=== PATIENT | female | born 1935 | race Caucasian/White ===

== ENCOUNTER 2025-04-28 13:48 | Emergency (ER) | payer OTHER ==
--- OUTSIDE RECORDS SUMMARY | 2025-04-28 13:54 | XMS REPORT | Continuity of Care Document ---
Author Name Unknown Address [address] [facility] [address] [place] [address] [facility] Address [address] [facility] [place] [address] Care Team Providers Care Press Room Supervisor Name Role Phone No , Pcp Primary Care Physician Unavailab le [id number] Attending Clinician Unavailable JESSICA JONES Attending Clinician Unavailable BENEDICT BENITES Attending Clinician Unavailab KOKI Delarosa Attending Clinician Unavailable TERENCE BROWN Attending Clinician Unavail able TERENCE BROWN Attending Clinician Unavail able Koki Steen Attending Clinician [phone] Mateo Olivier MD Attending Clinician [phone] Doctor Unassigned, [place] Attending Clinician U navailable Only, Tr Us 1 Inj Attending Clinician Unavailmarizol Turcios MD PhD, Maciel Attending Clinician [phone] MACIEL TURCIOS Attending Clinician Unavailable Surgery, External Attending Clinician UnavailMATEO Shah Attending Clinician Unavailable Norma Castillo MD Attending Clinician + [phone] Holly Espinoza Attending Clinician [phone] Lab, Ang - Db Attending Clinician Unavailable HOLLY ODEN Attending Clinician Unavailable Nurse, [facility] Attending Clinician Un available Unknown, Attending Attending Clinician Unavailab NEENA Kearney Attending Clinician Unavailab Terence Mena MD Attending Clinician [phone] Vu Hubbard MD Attending Clinician [phone] VU HUBBARD Attending Clinician UnavailVU Luna Attending Clinician UnavailIsabel Lopez LCSW Attending Clinician [phone] Lab, Ang - Db Attending Clinician Unavailable Norma Castillo MD Attending Clinician + [phone] NORMA CASTILLO Attending Clinician Unavailable MONI Attending Clinician Unavail able JEREMY Attending Clinician Unavailab catina ANDREW Attending Clinician Unavail able NYA PINTO BRADLEY Attending Clinician Un available FAUZIA MAYER Attending Clinician Unavailable Vu Hubbard MD Attending Clinician [phone] Koki Steen Attending Clinician + [phone] Doctor Unassigned, [place] Attending Clinician U navailable [phone] Admitting Clinician Unavailable JESSICA JONES Admitting Clinician Unavailable BENEDICT BENITES Admitting Clinician Unavailab MATEO August Admitting Clinician Unavailable MONI Admitting Clinician Unavail able JEREMY Admitting Clinician Unavailab catina ANDREW Admitting Clinician Unavail able NYA PINTO BRADLEY Admitting Clinician Un available Payers Payer Name Policy Type Policy Number Effective Date Expirati on Date Source MEDICARE PART A AND B [id number] 2002 00:00:00 MEDICARE PART A \\T\\ B [id number] 2002 00:00:00 MRI Interventions [facility] [id number] 2017 00:00:00 [facility] [id number] 2024 00:00:00 MEDICARE PART A AND B Medicare [id number] 2024 00:00:00 [facility] Medicaid [id number] 2023 00:00:00 [place] [employer] [id number] 2002 00:00:00 ELIAZARMARK [id number] 2017 00:00:00 [facility] \\T\\ SURGERY [facility] [id number] MCR MCR [id number] [facility] [id number] Problems Condition Name Condition Details Condition Category Status Onset Date Resolution Date Last Treatment Date Treating Clinician Comments Source Spastic hemiplegia affecting left dominant side, 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, unspecifie d etiology Disease Active 7-15 00:00: 00 [facility] Dizziness and giddiness Dizziness and giddiness Disease Active 5-16 00:00: 00 [facility] 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 Disease Active 2023-09 00:00: 00 Shay Funez Pain of left side of body Pain of left side of body Disease Active 2023-09 00:00: 00 Shay Funez Spastic hemiparesi s of left nondominan t side Spastic hemiparesi s of left nondominan t side Disease Active 2023-09 00:00: 00 Shay Funez Abnormal finding of blood chemistry, unspecifie d Abnormal finding of blood chemistry, unspecifie d Disease Active 05-09 00:00: 00 Shay Funez Bilateral hearing loss Bilateral hearing loss Disease Active 05-09 00:00: 00 Shay Fuenz Chronic constipati on Chronic constipati on Disease Active 05-09 00:00: 00 Shay Funez Environmen kristin allergies Environmen kristin allergies Disease Active 05-09 00:00: 00 Shay Funez History of CVA (cerebrova scular accident) History of CVA (cerebrova scular accident) Disease Active 05-09 00:00: 00 Shay Funez Hyperlipid emia Hyperlipid emia Disease Active 05-09 00:00: 00 Shay Funez Hypertensi on Hypertensi on Disease Active 05-09 00:00: 00 Shay Funez Hemiparesi s of left nondominan t 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 (CMS/HCC) Hemiparesi s of left nondominan t 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 (CMS/HCC) Disease Active 05-09 00:00: 00 Shay Funez Urinary frequency Urinary frequency Disease Active 05-09 00:00: 00 Shay Funez Muscle spasm Muscle spasm Disease Active 05-09 00:00: 00 [facility] Hypothyroi dism, unspecifie d type Hypothyroi dism, unspecifie d type Disease Active 05-09 00:00: 00 [facility] At risk for falls At risk for falls Disease Active 03-01 00:00: 00 Shay Funez Unspecifie d abnormalit ies of gait and mobility Unspecifie d abnormalit ies of gait and mobility Disease Active 03-01 00:00: 00 Shay Funez Other sequelae of cerebral infarction Other sequelae of cerebral infarction Disease Active 2022-09 0- 00:00: 00 Shay Funez Other speech and language deficits following unspecifie d cerebrovas cular disease Other speech and language deficits following unspecifie d cerebrovas cular disease Disease Active 2022-09 0- 00:00: 00 Shay Funez Other speech disturbanc es Other speech disturbanc es Disease Active 2022-09 0-04 00:00: 00 Shay Funez 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 Disease Active 2-28 00:00: 00 Shay Funez Hypothyroi dism Hypothyroi dism Disease Active 1-26 00:00: 00 Shay Funez Acute pain due to trauma Acute pain due to trauma Disease Active 2021-09 00:00: 00 Shay Funez Cerebral infarction , unspecifie d Cerebral infarction , unspecifie d Disease Active 2021-09 00:00: 00 Shay Funez 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 Disease Active 2021-09 00:00: 00 Shay Funez Difficulty in walking, not elsewhere classified Difficulty in walking, not elsewhere classified Disease Active 2021-09 00:00: 00 Shay Funez Dysarthria and anarthria Dysarthria and anarthria Disease Active 2021-09 00:00: 00 Shay Funez Dysphagia, oropharyng eal phase Dysphagia, oropharyng eal phase Disease Active 2021-09 00:00: 00 Shay Funez Fall on same level from slipping, tripping and stumbling without subsequent striking against object, subsequent encounter Fall on same level from slipping, tripping and stumbling without subsequent striking against object, subsequent encounter Disease Active 2021-09 00:00: 00 Shay Funez Fracture of nasal bones, subsequent encounter for fracture with routine healing Fracture of nasal bones, subsequent encounter for fracture with routine healing Disease Active 2021-09 00:00: 00 Shay Funez 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 (CMS/HCC) 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 (CMS/HCC) Disease Active 2021-09 00:00: 00 Shay Funez Essential (primary) hypertensi on Essential (primary) hypertensi on Disease Active 2021-09 00:00: 00 Shay Funez Other specified hypothyroi dism Other specified hypothyroi dism Disease Active 2021-09 00:00: 00 Shay Funez Muscle spasm Muscle spasm Disease Active 2021-09 00:00: 00 Shay Funez Muscle weakness (generaliz ed) Muscle weakness (generaliz ed) Disease Active 2021-09 00:00: 00 Shay Funez Neurogenic bowel, not elsewhere classified Neurogenic bowel, not elsewhere classified Disease Active 2021-09 00:00: 00 Shay Funez 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 2021-09 00:00: 00 Shay Funez 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 , 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 , subcortica l Disease Active 2021-09 00:00: 00 Shay Funez Other abnormalit ies of gait and mobility Other abnormalit ies of gait and mobility Disease Active 2021-09 00:00: 00 Shay Funez Other asthma Other asthma Disease Active 2021-09 00:00: 00 Shay Funez Other lack of coordinati on Other lack of coordinati on Disease Active 2021-09 00:00: 00 Shay Funez 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 Disease Active 2021-09 00:00: 00 Shay Funez Other sleep disorders Other sleep disorders Disease Active 2021-09 00:00: 00 Shay Funez Rhabdomyol ysis Rhabdomyol ysis Disease Active 2021-09 00:00: 00 Shay Funez Unspecifie d protein-ca courtney malnutriti on (CMS/HCC) Unspecifie d protein-ca courtney malnutriti on (CMS/HCC) Disease Active 2021-09 00:00: 00 Shay Funez Unsteadine ss on feet Unsteadine ss on feet Disease Active 2021-09 00:00: 00 Shay Funez No known active problems No known active problems Disease [facility] Allergies, Adverse Reactions, Alerts Allergy Name Allergy Type Status Severity Reaction(s) Onset Date Inactive Date Treating Clinician Comments Source MORPHINE DRUG INGREDI Active High N/V 02-24 00:00: 00 [facility] Morphine Propensi ty to adverse reaction s Active Nausea and/or Vomiting 02-24 00:00: 00 [facility] Morphine Propensi ty to adverse reaction s Active Nausea And Vomiting, GI intolerance 2021-09 00:00: 00 Shay Chan [facility] Amoxicil arvind Propensi ty to adverse reaction s Active 2021-09 00:00: 00 [facility] Amoxicil arvind Propensi ty to adverse reaction s Active Diarrhea, GI intolerance 2020-09 00:00: 00 Other Reaction( s): Amoxicill in Sodium Shay Chan Epic AMOXICIL ARVIND DRUG INGREDI Active Diarrhea 2020-09 00:00: 00 [facility] Social History Social Habit Start Date Stop Date Quantity Comments Source Gender identity 2023-12-13 04:52:06 Identifies as female gender (finding) Javan Funez Sexual orientation M emojaclyn Funez History of tobacco use Cigarette Smoker [facility] ASSERTION Not [facility] History of Social function 2024-08-29 00:00:00 2024-08-29 00:00:00 Javan Funez Cigarettes smoked current (pack per day) - Reported 2022-08-04 00:00:00 2022-08-04 00:00:00 [facility] Cigarette pack-years 2022-08-04 00:00:00 2022-08-04 00:00:00 [facility] Alcohol intake 2022-08-04 00:00:00 2022-08-04 00:00:00 Ex-drinker (finding) [facility] Alcoholic beverage intake 2022-08-04 00:00:00 2022-08-04 00:00:00 Ex-drinker (finding) [facility] Sex 2022-06-25 17:03:04 2022-06-25 17:03:04 Female (finding) [facility] Exposure to SARS-CoV-2 (event) 2022-04-18 00:00:00 2022-04-28 15:38:00 Not sure [facility] Tobacco use and exposure 2021-08-01 00:00:00 2021-08-01 00:00:00 Smokeless tobacco non-user [facility] Sex assigned at 1935 00:00:00 1935 00:00:00 F [facility] Smoking Status Start Date Stop Date Source Ex-smoker 2022-08-04 00:00:00 2022-08-04 00:00:00 [facility] Never smoked tobacco [facility] Medications Ordered Medication Name Filled Medication Name Start Date Stop Date Current Medication? Ordering Clinician Indication Dosage Frequency Signature (SIG) Comments Components Source pramipexole 0.5 mg tablet 04-26 00:00: 00 Yes [id number] 9109 .5mg Take 1 tablet by mouth in the morning and 1 tablet at noon and 1 tablet in the evening. [facility] pramipexole 0.5 mg tablet 04-04 00:00: 00 04-23 00:00 :00 No [id number] 9109 .5mg Take 1 tablet by mouth in the morning and 1 tablet at noon and 1 tablet in the evening. [facility] tiZANidine 4 mg tablet 03-28 00:00: 00 Yes [id number] 4mg Take 1 tablet by mouth every 8 hours as needed for Other (pain). Caution, this can cause drowsiness [facility] phenol 6% injection 20 mL phenol 6% injection 20 mL 02-27 11:15: 00 Yes [id number] 9103 20mL Shay Funez losartan 100 mg tablet 02-08 00:00: 00 Yes [id number] 100mg Take 1 tablet by mouth every morning. [facility] amLODIPine 2.5 mg tablet 02-03 00:00: 00 02-04 04:59 :00 Yes [id number] 2.5mg Take 1 tablet by mouth in the morning. [facility] phenol 6% injection 20 mL phenol 6% injection 20 mL 2023-09 11:45: 00 02-27 10:40 :00 No [id number] 20mL 20 mL, Injection, Once, On Thu08/29/24 at 1145, For 1 dose, Planned CPT Code(s): 58597 - DSTRJ NEUROLYTIC AGENT OTHER PERIPHERAL NERVE Shay Funez tiZANidine (Zanaflex) 4 MG tablet tiZANidine (Zanaflex) 4 MG tablet 2023-09 10:57: 17 Yes 4mg Q8H Take 4 mg by mouth every 8 hours if needed. Sahy Funez montelukast (Singulair) 10 MG tablet montelukast (Singulair) 10 MG tablet 2023-09 10:57: 17 Yes 10mg Take 10 mg by mouth at bedtime. Shay Funez losartan (Cozaar) 100 MG tablet losartan (Cozaar) 100 MG tablet 2023-09 10:57: 17 Yes 100mg Take 100 mg by mouth every morning. Shay Funez levothyroxi ne (Synthroid, Levoxyl) 50 MCG tablet levothyroxi ne (Synthroid, Levoxyl) 50 MCG tablet 2023-09 10:57: 17 Yes 50ug Take 50 mcg by mouth every morning. Shay Funez docusate sodium (Colace) 100 MG capsule docusate sodium (Colace) 100 MG capsule 2023-09 10:57: 17 Yes 100mg Take 100 mg by mouth in the morning and 100 mg in the evening. Take with meals. Shay Funez amLODIPine (Norvasc) 5 MG tablet amLODIPine (Norvasc) 5 MG tablet 2023-09 10:57: 17 Yes 5mg Take 5 mg by mouth at bedtime. Shay Funez phenol 6% injection 10 mL phenol 6% injection 10 mL 2023-09 00:00: 00 08-29 10:13 :00 No [id number] 9103 10mL 10 mL, Injection, Oncall, Starting on Thu08/29/24 at 0000, For 1 dose, Planned CPT Code(s): 12420 - DSTRJ NEUROLYTIC AGENT OTHER PERIPHERAL NERVE, 03357 - US GUIDANCE NEEDLE PLACEMENT IMG S&I Shay Funez clotrimazol e (Lotrimin) 1 % external solution clotrimazol e (Lotrimin) 1 % external solution 2023-09 00:00: 00 Yes Apply topically. Shay Funez ascorbic acid (VITAMIN C ORAL) 05-09 13:43: 36 Yes Take by mouth. [facility] polyethylen e glycol, PEG, 3350 (Glycolax) 17 GM/SCOOP powder polyethylen e glycol, PEG, 3350 (Glycolax) 17 GM/SCOOP powder 05-09 00:00: 00 Yes 17g Take 17 g by mouth. Shay Chan Epic docusate (COLACE) 100 mg capsule 05-09 00:00: 00 Yes [id number] 100mg Take 1 capsule by mouth in the morning and 1 capsule in the evening. [facility] levothyroxi ne 50 mcg tablet 04-21 00:00: 00 Yes [id number] 50ug Take 1 tablet by mouth every morning. [facility] montelukast 10 mg tablet 04-21 00:00: 00 Yes [id number] 10mg Take 1 tablet by mouth at bedtime. [facility] losartan 100 mg tablet 04-21 00:00: 00 02-08 00:00 :00 No [id number] 100mg Take 1 tablet by mouth every morning. [facility] amLODIPine 5 mg tablet 04-21 00:00: 00 02-03 00:00 :00 No [id number] 5mg Take 1 tablet by mouth in the morning. [facility] amLODIPine 5 mg tablet 02-24 14:04: 41 02-24 00:00 :00 No 5mg Take 1 tablet by mouth in the morning. [facility] Levothyroxi ne 50 mcg capsule 02-24 14:00: 25 02-24 00:00 :00 No Take by mouth. [facility] tiZANidine 4 mg tablet 02-24 00:00: 00 03-28 00:00 :00 No [id number] 4mg Take 1 tablet by mouth every 8 (eight) hours as needed for Other (pain). [facility] losartan 100 mg tablet 02-13 00:00: 00 02-24 00:00 :00 No 100mg Take 1 tablet by mouth every morning. [facility] tiZANidine 4 mg tablet 2024-0 5-06 00:00: 00 02-24 00:00 :00 No 4mg Take 1 tablet by mouth every 6 (six) hours as needed. [facility] loperamide (Imodium) 2 MG capsule loperamide (Imodium) 2 MG capsule 3-08 00:00: 00 Yes 2mg Take 2 mg by mouth. Shay Funez gabapentin (Neurontin) 600 MG tablet gabapentin (Neurontin) 600 MG tablet 3-04 00:00: 00 Yes 600mg Take 600 mg by mouth. Shay Funez acetaminoph en (Tylenol) 325 MG tablet acetaminoph en (Tylenol) 325 MG tablet 05-07 00:00: 00 Yes 650mg Q4H Take 650 mg by mouth every 4 hours if needed. Shay Funez calcium carbonate (Tums) 500 MG chewable tablet calcium carbonate (Tums) 500 MG chewable tablet 05-07 00:00: 00 Yes 500mg Q.25D Chew 500 mg 4 times a day as needed. Shay Funez calcitonin, salmon, (Miacalcin) 200 UNIT/ACT nasal spray calcitonin, salmon, (Miacalcin) 200 UNIT/ACT nasal spray 05-07 00:00: 00 Yes 1{spray } QD Administer 1 spray into one nostril 1 time each day. Shay Funez Artificial Tears ophthalmic solution Artificial Tears ophthalmic solution 05-07 00:00: 00 Yes Administer into both eyes. Shay Funez levothyroxi ne (Tirosint) 50 MCG capsule 2021-09 09:30: 44 Yes .5ug Take 0.5 mcg by mouth. [facility] losartan (Cozaar) 50 MG tablet 2021-09 09:30: 19 Yes 100mg QD Take 100 mg by mouth 1 (one) time each day. [facility] sennosides (Senokot) 8.6 MG tablet sennosides (Senokot) 8.6 MG tablet 2021-09 00:00: 00 Yes 2{tbl} QD Take 2 tablets by mouth 1 time each day. Shay Funez melatonin 3 MG tablet melatonin 3 MG tablet 2021-09 00:00: 00 Yes 3mg QD Take 3 mg by mouth as needed at bedtime. [facility] leandro [facility] baclofen (Lioresal) 5 MG tablet baclofen (Lioresal) 5 MG tablet 2021-09 00:00: 00 Yes 5mg Take 5 mg by mouth. [facility] leandro [facility] Levothyroxi ne 50 mcg capsule 8-08 15:58: 19 Yes Take by mouth. [facility] olmesartan 5 mg tablet 5-10 00:00: 00 02-24 00:00 :00 No [id number] 5mg Take 1 tablet by mouth daily. [facility] montelukast 10 mg tablet 2-18 00:00: 00 02-24 00:00 :00 No [id number] 10mg Take 1 tablet by mouth daily. [facility] Immunizations Ordered Immunization Name Filled Immunization Name Date Status Comments Source Influenza, adjuvanted, trivalent, PF (FLUAD) 2024-08-29 00:00:00 Completed [facility] Influenza, High-dose Seasonal, Quadrivalent, Preservative Free Influenza, High-dose Seasonal, Quadrivalent, Preservative Free 2023-07-07 00:00:00 Completed [facility] Influenza, High-Dose, Trivalent, PF (FLUZONE) 2023-07-07 00:00:00 Completed Influenza, High-Dose, Trivalent, PF (FLUZONE) 2023-07-07 00:00:00 Completed Influenza, High-Dose, Trivalent, PF (FLUZONE) 2023-07-07 00:00:00 Completed PPD Test PPD Test 2022-07-25 00:00:00 Completed [facility] PPD (TB) 2022-07-25 00:00:00 Completed PPD (TB) 2022-07-25 00:00:00 Completed PPD (TB) 2022-07-25 00:00:00 Completed PPD Test PPD Test 2022-07-11 00:00:00 Completed [facility] Influenza, High Dose Seasonal, Preservative Free Influenza, High Dose Seasonal, Preservative Free 2022-07-11 00:00:00 Completed [facility] PPD (TB) 2022-07-11 00:00:00 Completed Influenza, High-Dose, Trivalent, PF (FLUZONE) 2022-07-11 00:00:00 Completed PPD (TB) 2022-07-11 00:00:00 Completed Influenza, High-Dose, Trivalent, PF (FLUZONE) 2022-07-11 00:00:00 Completed PPD (TB) 2022-07-11 00:00:00 Completed Influenza, High-Dose, Trivalent, PF (FLUZONE) 2022-07-11 00:00:00 Completed [facility] Influenza, High-dose Seasonal, Quadrivalent, Preservative Free Influenza, High-dose Seasonal, Quadrivalent, Preservative Free 2022-06-23 00:00:00 Completed [facility] Influenza, High-Dose, Trivalent, PF (FLUZONE) 2022-06-23 00:00:00 Completed Influenza, High-Dose, Trivalent, PF (FLUZONE) 2022-06-23 00:00:00 Completed Influenza, High-Dose, Trivalent, PF (FLUZONE) 2022-06-23 00:00:00 Completed Influenza, Seasonal, Quadrivalent, Adjuvanted Influenza, Seasonal, Quadrivalent, Adjuvanted 2021-08-01 00:00:00 Completed [facility] Pneumococcal Polysaccharide PPSV23 Pneumococcal Polysaccharide PPSV23 2021-08-01 00:00:00 Completed [facility] Influenza Virus Vaccine,quad Im,preserve Free 65+ 2021-08-01 00:00:00 Completed [facility] Pneumococcal Polysaccharide, PPSV23 (PNEUMOVAX) 2021-08-01 00:00:00 Completed [facility] Influenza Virus Vaccine,quad Im,preserve Free 65+ (FLUAD) 2021-08-01 00:00:00 Completed Pneumococcal Polysaccharide, PPSV23 (PNEUMOVAX) 2021-08-01 00:00:00 Completed Influenza Virus Vaccine,quad Im,preserve Free 65+ (FLUAD) 2021-08-01 00:00:00 Completed Pneumococcal Polysaccharide, PPSV23 (PNEUMOVAX) 2021-08-01 00:00:00 Completed Influenza Virus Vaccine,quad Im,preserve Free 65+ (FLUAD) 2021-08-01 00:00:00 Completed Pneumococcal Polysaccharide, PPSV23 (PNEUMOVAX) 2021-08-01 00:00:00 Completed Pfizer Purple Cap SARS-CoV-2 Pfizer Purple Cap SARS-CoV-2 2021-04-17 00:00:00 Completed [facility] SARS-COV-2 COVID-19 PFIZER VACCINE 2021-04-17 00:00:00 Completed [facility] SARS-COV-2 COVID-19 PFIZER VACCINE 2021-04-17 00:00:00 Completed SARS-COV-2 COVID-19 PFIZER VACCINE 2021-04-17 00:00:00 Completed SARS-COV-2 COVID-19 PFIZER VACCINE 2021-04-17 00:00:00 Completed Pfizer Purple Cap SARS-CoV-2 Pfizer Purple Cap SARS-CoV-2 2021-03-27 00:00:00 Completed [facility] SARS-COV-2 COVID-19 PFIZER VACCINE 2021-03-27 00:00:00 Completed [facility] SARS-COV-2 COVID-19 PFIZER VACCINE 2021-03-27 00:00:00 Completed SARS-COV-2 COVID-19 PFIZER VACCINE 2021-03-27 00:00:00 Completed SARS-COV-2 COVID-19 PFIZER VACCINE 2021-03-27 00:00:00 Completed Pneumococcal Polysaccharide PPSV23 Pneumococcal Polysaccharide PPSV23 2016-06-23 00:00:00 Completed [facility] Pneumococcal Polysaccharide, PPSV23 (PNEUMOVAX) 2016-06-23 00:00:00 Completed [facility] Pneumococcal Polysaccharide, PPSV23 (PNEUMOVAX) 2016-06-23 00:00:00 Completed [facility] Pneumococcal Polysaccharide, PPSV23 (PNEUMOVAX) 2016-06-23 00:00:00 Completed [facility] Influenza Virus Vaccine,quad Im,preserve Free 65+ (FLUAD) Unknown Completed [facility] Pneumococcal Polysaccharide, PPSV23 (PNEUMOVAX) Unknown Completed [facility] SARS-COV-2 COVID-19 PFIZER VACCINE Unknown Completed [facility] Influenza Virus Vaccine,quad Im,preserve Free 65+ (FLUAD) Unknown Completed [facility] Pneumococcal Polysaccharide, PPSV23 (PNEUMOVAX) Unknown Completed [facility] SARS-COV-2 COVID-19 PFIZER VACCINE Unknown Completed [facility] Influenza Virus Vaccine,quad Im,preserve Free 65+ (FLUAD) Unknown Completed [facility] Pneumococcal Polysaccharide, PPSV23 (PNEUMOVAX) Unknown Completed [facility] SARS-COV-2 COVID-19 PFIZER VACCINE Unknown Completed [facility] Influenza Virus Vaccine,quad Im,preserve Free 65+ (FLUAD) Unknown Completed [facility] Pneumococcal Polysaccharide, PPSV23 (PNEUMOVAX) Unknown Completed [facility] SARS-COV-2 COVID-19 PFIZER VACCINE Unknown Completed [facility] Influenza Virus Vaccine,quad Im,preserve Free 65+ (FLUAD) Unknown Completed [facility] Pneumococcal Polysaccharide, PPSV23 (PNEUMOVAX) Unknown Completed [facility] SARS-COV-2 COVID-19 PFIZER VACCINE Unknown Completed [facility] Influenza Virus Vaccine,quad Im,preserve Free 65+ (FLUAD) Unknown Completed [facility] Pneumococcal Polysaccharide, PPSV23 (PNEUMOVAX) Unknown Completed [facility] SARS-COV-2 COVID-19 PFIZER VACCINE Unknown Completed [facility] Influenza Virus Vaccine,quad Im,preserve Free 65+ (FLUAD) Unknown Completed [facility] Pneumococcal Polysaccharide, PPSV23 (PNEUMOVAX) Unknown Completed [facility] SARS-COV-2 COVID-19 PFIZER VACCINE Unknown Completed [facility] Influenza Virus Vaccine,quad Im,preserve Free 65+ (FLUAD) Unknown Completed [facility] Pneumococcal Polysaccharide, PPSV23 (PNEUMOVAX) Unknown Completed [facility] SARS-COV-2 COVID-19 PFIZER VACCINE Unknown Completed [facility] Influenza Virus Vaccine,quad Im,preserve Free 65+ (FLUAD) Unknown Completed [facility] Pneumococcal Polysaccharide, PPSV23 (PNEUMOVAX) Unknown Completed [facility] SARS-COV-2 COVID-19 PFIZER VACCINE Unknown Completed [facility] PPD (TB) Unknown Completed [facility] Influenza High Dose Unknown Completed [facility] Vital Signs Vital Name Observation Time Observation Value Comments S ource Systolic blood pressure 2025-04-04 16:35:00 143 mm[Hg] [facility] Diastolic blood pressure 2025-04-04 16:35:00 75 mm[Hg] [facility] o f [facility] Heart rate 2025-04-04 16:34:00 78 /min [facility] Body height 2025-04-04 16:34:00 157.5 cm [facility] Body weight 2025-04-04 16:34:00 55.974 kg [facility] BMI 2025-04-04 16:34:00 22.57 kg/m2 [facility] Oxygen saturation in Arterial blood by Pulse oximetry 2025-04-04 16:34:00 95 /min [place] o [facility] Systolic blood pressure 2025-02-27 11:35:00 129 mm[Hg] [facility] Diastolic blood pressure 2025-02-27 11:35:00 73 mm[Hg] [facility] Heart rate 2025-02-27 11:35:00 73 /min Memor ial [facility] Body temperature 2025-02-27 11:35:00 37 [facility] Respiratory rate 2025-02-27 11:35:00 19 /min [facility] Body height 2025-02-27 11:35:00 157.5 cm [facility] weight 2025-02-27 11:35:00 56.7 kg Colbyjose anaya [facility] BMI 2025-02-27 11:35:00 22.86 kg/m2 [facility] Oxygen saturation in Arterial blood by Pulse oximetry 2025-02-27 11:35:00 99 /min [facility] Systolic blood pressure 2025-02-27 11:35:00 129 mm[Hg] [facility] Diastolic blood pressure 2025-02-27 11:35:00 73 mm[Hg] [facility] Heart rate 2025-02-27 11:35:00 73 /min [facility] [place] [facility] Body temperature 2025-02-27 11:35:00 37 Beti [facility] Epic Respiratory rate 2025-02-27 11:35:00 19 /min [facility] Body height 2025-02-27 11:35:00 157.5 cm [facility] weight 2025-02-27 11:35:00 56.7 kg Colby Chan [facility] BMI 2025-02-27 11:35:00 22.86 kg/m2 Colby Chan [facility] Oxygen saturation in Arterial blood by Pulse oximetry 2025-02-27 11:35:00 99 /min [facility] d[facility]az [facility] Systolic blood pressure 2025-02-03 16:57:00 118 mm[Hg] [facility] Diastolic blood pressure 2025-02-03 16:57:00 96 mm[Hg] [facility] Heart rate 2025-02-03 16:57:00 94 /min Unive [facility] Oxygen saturation in Arterial blood by Pulse oximetry 2025-02-03 16:54:00 95 /min [facility] Body height 2025-02-03 16:19:00 157.5 cm [facility] Body weight 2025-02-03 16:19:00 54.885 kg [facility] BMI 2025-02-03 16:19:00 22.13 kg/m2 [facility] Systolic blood pressure 2025-01-06 16:19:00 126 mm[Hg] [facility] Diastolic blood pressure 2025-01-06 16:19:00 61 mm[Hg] [facility] Heart rate 2025-01-06 16:19:00 66 /min Unive [facility] Body temperature 2025-01-06 16:19:00 37.17 Beti [facility] Body height 2025-01-06 16:19:00 160 cm [facility] Body weight 2025-01-06 16:19:00 55.067 kg [facility] BMI 2025-01-06 16:19:00 21.51 kg/m2 [facility] Oxygen saturation in Arterial blood by Pulse oximetry 2025-01-06 16:19:00 97 /min [facility] Systolic blood pressure 2024-08-29 10:43:00 116 mm[Hg] [facility] Diastolic blood pressure 2024-08-29 10:43:00 76 mm[Hg] [facility] Heart rate 2024-08-29 10:43:00 73 /min Memor ial [facility] Respiratory rate 2024-08-29 10:43:00 18 /min Javan Chan Epic Body height 2024-08-29 10:43:00 160 cm Colby Rosaann Epic Body weight 2024-08-29 10:43:00 54.885 kg Colby Rosaann Epic BMI 2024-08-29 10:43:00 21.43 kg/m2 Colby Rosaann [facility] Oxygen saturation in Arterial blood by Pulse oximetry 2024-08-29 10:43:00 98 /min [facility] Epic Systolic blood pressure 2024-08-29 10:43:00 116 mm[Hg] [facility] Diastolic blood pressure 2024-08-29 10:43:00 76 mm[Hg] [facility] Heart rate 2024-08-29 10:43:00 73 /min Memor ial [place] Respiratory rate 2024-08-29 10:43:00 18 /min [facility] Body height 2024-08-29 10:43:00 160 cm Colby Chan Epic Body weight 2024-08-29 10:43:00 54.885 kg Colby Chan Epic BMI 2024-08-29 10:43:00 21.43 kg/m2 Colby Rosaann [facility] Oxygen saturation in Arterial blood by Pulse oximetry 2024-08-29 10:43:00 98 /min [facility] Systolic blood pressure 2024-08-09 15:00:00 135 mm[Hg] [facility] Diastolic blood pressure 2024-08-09 15:00:00 75 mm[Hg] [facility] Heart rate 2024-08-09 15:00:00 73 /min [facility] Body height 2024-08-09 15:00:00 160 cm [facility] Body weight 2024-08-09 15:00:00 55.112 kg [facility] BMI 2024-08-09 15:00:00 21.52 kg/m2 [facility] Oxygen saturation in Arterial blood by Pulse oximetry 2024-08-09 15:00:00 95 /min [facility] Systolic blood pressure 2024-06-20 14:11:00 110 mm[Hg] [facility] Diastolic blood pressure 2024-06-20 14:11:00 68 mm[Hg] [facility] Heart rate 2024-06-20 14:11:00 70 /min Unive [facility] Body height 2024-06-20 14:11:00 160 cm [facility] Body weight 2024-06-20 14:11:00 55.792 kg Univ [facility] BMI 2024-06-20 14:11:00 21.79 kg/m2 [facility] Oxygen saturation in Arterial blood by Pulse oximetry 2024-06-20 14:11:00 98 /min [facility] Systolic blood pressure 2024-05-09 18:40:00 119 mm[Hg] [facility] Diastolic blood pressure 2024-05-09 18:40:00 68 mm[Hg] [facility] Heart rate 2024-05-09 18:25:00 63 /min Unive [facility] Body height 2024-05-09 18:25:00 160 cm [facility] Body weight 2024-05-09 18:25:00 55.792 kg [facility] BMI 2024-05-09 18:25:00 21.79 kg/m2 [facility] Oxygen saturation in Arterial blood by Pulse oximetry 2024-05-09 18:25:00 98 /min [facility] Systolic blood pressure 2024-02-25 18:06:00 131 mm[Hg] [facility] Diastolic blood pressure 2024-02-25 18:06:00 68 mm[Hg] [facility] Heart rate 2024-02-25 18:06:00 73 /min Unive [facility] Body temperature 2024-02-25 18:06:00 36.89 Beti [facility] Respiratory rate 2024-02-25 18:06:00 18 /min [facility] Body height 2024-02-25 18:06:00 160 cm Univ [facility] Body weight 2024-02-25 18:06:00 58.106 kg [facility] BMI 2024-02-25 18:06:00 22.69 kg/m2 [facility] Oxygen saturation in Arterial blood by Pulse oximetry 2024-02-25 18:06:00 94 /min [facility] Systolic blood pressure 2022-04-30 19:26:00 127 mm[Hg] [facility] Diastolic blood pressure 2022-04-30 19:26:00 76 mm[Hg] [facility] Heart rate 2022-04-30 19:26:00 84 /min [facility] Body height 2022-04-30 19:26:00 157.5 cm [facility] Body weight 2022-04-30 19:26:00 68.04 kg [facility] BMI 2022-04-30 19:26:00 27.44 kg/m2 [facility] Procedures Procedure Date / Time Performed Performing Clinician Source CARDIOLOGY EVENT MONITOR 2025-03-03 20:00:23 Doc tor Unassigned, [place] [facility] CARDIAC MONITORING 2025-03-02 17:42:18 Doctor Un assigned, [place] [facility] US GUIDED NEEDLE PLACEMENT 2025-02-27 12:09:32 Maciel Turcios [facility] Epic Nerve Block 2025-02-27 00:00:00 [facility] US guided needle placement 2025-02-27 00:00:00 [facility] TRANSTHORACIC ECHO (TTE) COMPLETE 2025-02-15 20:50:49 Mateo Olivier [facility] URINALYSIS 2025-01-06 17:39:00 Holly Oden [facility] URINE CULTURE 2025-01-06 17:39:00 Holly Oden [facility] HB ECG ROUTINE & RHYTHM STRIP 2025-01-06 16:57:35 Holly Oden [facility] FLU VACC(),65+YR,0. 5 ML,IM,ADJUVANTED,TIV(FLU AD) 2024-08-29 19:03:43 Doctor Unassigned, [place] [facility] US GUIDED NEEDLE PLACEMENT 2024-08-29 12:11:49 Maciel Turcios [facility] DME/SUPPLY JUSTIFICATION 2024-07-06 16:46:25 Doc nely Unassigned, [place] [facility] DME/SUPPLY JUSTIFICATION 2024-05-17 18:08:06 Doc nely Unassigned, [place] [facility] DME/SUPPLY JUSTIFICATION 2024-05-17 18:07:49 Doc nely Unassigned, [place] [facility] DME/SUPPLY JUSTIFICATION 2024-03-22 19:13:13 Doc nely Unassigned, [place] [facility] URINE CULTURE 2024-02-25 19:32:00 Jonathan [facility] CBC WITH DIFF 2024-02-25 19:26:00 [facility] Plan of Care Planned Activity Planned Date Details Comments Source Procedure 2025-08-29 00:00:00 Nerve Block Colby jaclyn [facility] Procedure 2025-08-29 00:00:00 US guided ne edle placement [facility] Encounters Start Date/Time End Date/Time Encounter Type Admission Type Attending [facility] Facility Care Department Encounter ID Source 2023-02-10 08:46:08 Outpatient [facility] [id number] [facility] 2023-01-21 15:40:30 Outpatient [id number] [facility] REF [id number] ENCTY 2022-12-23 08:14:12 Outpatient [facility] [id number] [facility] 2022-09-11 13:56:49 Outpatient [facility] [id number] [facility] 2022-09-09 09:19:27 Outpatient [facility] [id number] [facility] 2022-09-05 11:36:14 Outpatient [facility] [id number] [facility] 2022-08-04 09:28:33 Outpatient [facility] [id number] [facility] 2022-08-01 10:55:54 Outpatient [facility] [id number] [facility] 2022-07-30 05:54:20 Outpatient [facility] [id number] [facility] 2022-07-28 13:00:29 Outpatient [facility] [id number] [facility] 2022-07-01 08:26:47 Outpatient [facility] [id number] [facility] 2022-06-25 18:57:00 Inpatient JESSICA ARCINIEGA [facility] [id number] [facility] 2022-06-24 16:59:52 Outpatient BENEIDCT [facility] OPH [id number] [facility] 2025-04-23 00:00:00 2025-04-26 08:43:11 Refill Altagracia [facility] 1.840.114 350.1.13.10 4.2.7.2.686 [id number] [facility] 2025-04-04 11:30:00 2025-04-04 12:10:03 Office Visit Kaylene [facility] 1.84.114 350.1.13.10 4.2.7.2.686 [id number] [facility] 2025-03-30 00:00:00 2025-03-30 13:13:43 Telephone Mateo Olivier [facility] BUILDING 1.84.114 350.1.13.10 4.2.7.2.686 [id number] [facility] 2025-03-27 00:00:00 2025-03-28 09:31:41 Telephone Altagracia [facility] 1.84.114 350.1.13.10 4.2.7.2.686 [id number] [facility] 2025-03-03 00:00:00 2025-03-04 02:04:32 Orders Only Doctor Unassigned, [place] Doctor Unassigned, [place] [facility] ([facility] 1.2.840.114 350.1.13.10 4.2.7.2.686 [id number] [facility] 2025-03-03 00:00:00 2025-03-03 08:36:48 Telephone Mateo Olivier [facility] 1.2.840.114 350.1.13.10 4.2.7.2.686 [id number] [facility] 2025-03-02 00:00:00 2025-03-03 02:04:33 Orders Only Doctor Unassigned, [place] Doctor Unassigned, [place] [facility] ([facility] 1.2.840.114 350.1.13.10 4.2.7.2.686 [id number] [facility] 2025-02-28 00:00:00 2025-02-28 16:28:55 Telephone Mateo Olivier [facility] 1.2.840.114 350.1.13.10 4.2.7.2.686 [id number] [facility] 2025-02-27 10:34:52 2025-02-27 23:59:00 Hospital Encounter Only, Tr Us 1 Inj Karolina Maciel [facility] 1.0.114 350.1.13.70 8.2.7.2.686 [id number] Shay reeves [place] [facility] 2025-02-27 10:34:51 2025-02-27 23:59:00 Outpatient Elective MACIEL TURCIOS [facility] M[facility] [id number] [facility] 2025-02-27 10:45:00 2025-02-27 11:15:00 External Contacts Maciel Turcios Surgery, External EXT MSRDP LOCATION 1.2840.114 350.1.13.58 9.2.7.2.686 [id number] [facility] 2025-02-20 00:00:00 2025-02-22 11:52:27 Telephone Vernell [facility] 1.2.840.114 350.1.13.10 4.2.7.2.686 [id number] [facility] 2025-02-20 15:24:47 2025-02-20 23:59:00 Hospital Encounter Kaylene OLIVIER [facility] NAL BUILDING 1.2.840.114 350.1.13.10 4.2.7.2.686 [id number] [facility] 2025-02-15 15:00:00 2025-02-15 23:59:00 Hospital Encounter Kaylene OLIVIER [facility] BUILD[facility] 1.2.840.114 350.1.13.10 4.2.7.2.686 [id number] [facility] 2025-02-08 00:00:00 2025-02-08 11:32:46 Refill [facility] 1.2.840.114 350.1.13.10 4.2.7.2.686 [id number] [facility] 2025-02-07 13:30:00 2025-02-07 13:30:00 Outpatient KOKI GROVE [facility] [id number] [facility] 2025-02-03 11:00:00 2025-02-03 12:14:27 Office Visit Kaylene Olivier [facility] 1.2.840.114 350.1.13.10 4.2.7.2.686 [id number] [facility] 2025-02-03 11:00:00 2025-02-03 11:00:00 Outpatient Kaylene OLIVIER [facility] [id number] [facility] 2025-01-16 00:00:00 2025-01-18 12:46:22 Telephone Holly Oden [facility] VJ?[facility] 1.2840.114 350.1.13.10 4.2.7.2.686 [id number] [facility] 2025-01-11 00:00:00 2025-01-16 09:31:49 Telephone Holly Oden [facility] VJ?[facility] 1.2840.114 350.1.13.10 4.2.7.2.686 [id number] [facility] 2025-01-06 14:00:00 2025-01-06 14:15:00 Manager Branch Visit Lab, Ang - Db Holly Oden Corina Lab, Ang - Db [facility] 1.2840.114 350.1.13.10 4.2.7.2.686 [id number] [facility] 2025-01-06 14:00:00 2025-01-06 14:00:00 Outpatient R HAILEEHOLLY [facility] [id number] [facility] 2025-01-06 11:30:00 2025-01-06 12:21:53 Office Visit R [facility] 1.284.114 350.1.13.10 4.2.7.2.686 [id number] [facility] 2024-03-22 00:00:00 2024-11-05 07:24:04 Orders Only Doctor Unassigned, [place] Doctor Unassigned, [place] [facility] 1.2.840.114 350.1.13.10 4.2.7.2.686 [id number] [facility] 2024-05-17 00:00:00 2024-11-05 07:03:55 Orders Only Doctor Unassigned, [place] Doctor Unassigned, [place] [facility] ([place]) 1.2.840.114 350.1.13.10 4.2.7.2.686 [id number] [facility] 2024-05-17 00:00:00 2024-11-05 07:03:43 Orders Only Doctor Unassigned, [place] Doctor Unassigned, [place] [facility] ([place]) 1.2.840.114 350.1.13.10 4.2.7.2.686 [id number] [facility] 2024-07-06 00:00:00 2024-11-05 06:49:11 Orders Only Doctor Unassigned, [place] Doctor Unassigned, [place] [facility] ([place]) 1.2.840.114 350.1.13.10 4.2.7.2.686 [id number] [facility] 2024-08-29 09:59:17 2024-08-29 23:59:00 Hospital Encounter Only, Tr Us 1 Inj TIRR [facility] [place] 1.2.840.114 350.1.13.70 8.2.7.2.686 [id number] Shay Chan [facility] 2024-08-29 09:59:17 2024-08-29 23:59:00 Outpatient Elective MHETR MHETR [id number] [facility] 2024-08-29 09:59:06 2024-08-29 23:59:00 Outpatient Elective KAROLINAMACIEL MHETR MHETR [id number] MHETR 2024-08-29 13:15:00 2024-08-29 13:35:00 Nurse Visit Nurse, [facility] Unknown, Attending Nurse, [facility] 1.2840.114 350.1.13.10 4.2.7.2.686 [id number] [facility] 2024-08-29 13:15:00 2024-08-29 13:15:00 Outpatient R NEENA VELAZQUEZ [facility] [id number] [facility] 2024-08-29 10:15:00 2024-08-29 10:45:00 Procedure Visit Maciel Turcios [facility] Dustin 1.284.114 350.1.13.70 8.2.7.2.686 [id number] Shay Chan [facility] 2024-08-29 10:15:00 2024-08-29 10:45:00 External Contact Maciel Turcios EXT MSRDP LOCATION 1..114 350.1.13.58 9.2.7.2.686 [id number] [facility] 2024-08-09 10:15:00 2024-08-09 10:30:00 Manager Branch Visit Lab, Koki Wilkins Ang - Db [facility] 1.84.114 350.1.13.10 4.2.7.2.686 [id number] [facility] 2024-08-09 09:30:00 2024-08-09 10:04:58 Outpatient R KOKI FRIAS [facility] [id number] [facility] 2024-08-09 09:30:00 2024-08-09 10:04:58 [facility] 1.284.114 350.1.13.10 4.2.7.2.686 [id number] [facility] 2024-08-02 00:00:00 2024-08-03 11:34:15 Telephone Terence Brown [facility] 1.84.114 350.1.13.10 4.2.7.2.686 [id number] [facility] 2024-08-02 00:00:00 2024-08-02 14:17:16 Telephone Terence Brown [facility] VJ?[facility] 1.2.840.114 350.1.13.10 4.2.7.2.686 [id number] [facility] 2024-07-27 00:00:00 2024-07-27 12:53:26 Letter (Out) [facility] 1.2.840.114 350.1.13.10 4.2.7.2.686 [id number] [facility] 2024-07-19 00:00:00 2024-07-22 16:24:08 Telephone StephanieTerence [facility] VJ?[facility] 1.2.840.114 350.1.13.10 4.2.7.2.686 [id number] [facility] 2024-06-21 00:00:00 2024-06-30 15:07:32 Telephone StephanieTerence [facility] VJ?[facility] 1.2.840.114 350.1.13.10 4.2.7.2.686 [id number] [facility] 2024-06-17 00:00:00 2024-06-20 10:28:17 Telephone uV Hubbard [facility] VJ[facility] 1.2.840.114 350.1.13.10 4.2.7.2.686 [id number] [facility] 2024-06-20 09:20:00 2024-06-20 10:13:40 Outpatient R TERENCE BROWN HOWARD [facility] [id number] [facility] 2024-06-20 09:20:00 2024-06-20 10:13:40 Office Visit Terence Brown [facility] VJ?[facility] 1.2.840.114 350.1.13.10 4.2.7.2.686 [id number] [facility] 2024-06-07 09:15:00 2024-06-07 09:15:00 Outpatient R VU HUBBARD CRAIG [facility] [id number] [facility] 2024-05-27 00:00:00 2024-06-01 08:32:32 Telephone Koki Frias [facility] 1.2.840.114 350.1.13.10 4.2.7.2.686 [id number] [facility] 2024-05-12 00:00:00 2024-05-27 15:03:54 [facility] 1.2.840.114 350.1.13.10 4.2.7.2.686 [id number] [facility] 2024-05-11 00:00:00 2024-05-11 12:25:48 Letter (Out) [facility] 1.2.840.114 350.1.13.10 4.2.7.2.686 [id number] [facility] 2024-05-09 13:30:00 2024-05-09 14:44:11 Outpatient R ASHLEYANNA SPARKSA [facility] [id number] [facility] 2024-05-09 13:30:00 2024-05-09 14:44:11 [facility] 1.2.840.114 350.1.13.10 4.2.7.2.686 [id number] [facility] 2024-05-04 00:00:00 2024-05-04 10:33:22 Telephone [facility] VJ?[facility] [id number] 350.1.13.10 4.2.7.2.686 [id number] [facility] 2024-04-04 10:15:00 2024-04-04 10:15:00 Outpatient MACIEL TURCIOS [facility] [id number] [facility] 2024-02-25 00:00:00 2024-03-01 14:13:39 [facility] [id number] 350.1.13.10 4.2.7.2.686 [id number] [facility] 2024-02-25 00:00:00 2024-02-25 15:53:41 Patient Outreach [place] [facility] [id number] 350.1.13.10 4.2.7.2.686 [id number] [facility] 2024-02-25 14:15:00 2024-02-25 14:26:44 Manager Branch Visit Lab, Cruzito Zaidi [facility] BUILDING 1.2.840.114 350.1.13.10 4.2.7.2.686 [id number] [facility] 2024-02-25 13:00:00 2024-02-25 14:18:31 Outpatient R JONATHAN [facility] [id number] [facility] 2024-02-25 13:00:00 2024-02-25 14:18:31 Office Visit [facility] VJ?[facility] BUILDING 1.2.840.114 350.1.13.10 4.2.7.2.686 [id number] [facility] 2023-12-03 10:45:00 2023-12-03 10:45:00 External Contact MACIEL TURCIOS EXT MSRDP LOCATION 1.2.840.114 350.1.13.58 9.2.7.2.686 [id number] [facility] 2023-07-06 09:15:00 2023-07-06 09:15:00 External Contact MACIEL TURCIOS EXT MSRDP LOCATION 1.2.840.114 350.1.13.58 9.2.7.2.686 [id number] [facility] 2023-05-07 11:15:00 2023-05-07 11:15:00 Outpatient MACIEL TURCIOS [facility] [id number] [facility] 2023-01-22 15:41:00 2023-02-05 10:30:00 Inpatient 3 NYA PINTO [facility] [id number] [facility] 2022-09-11 13:15:00 2022-09-11 13:45:00 External Contact Maciel Turcios EXT MSRDP LOCATION 1.2.840.114 350.1.13.58 9.2.7.2.686 [id number] [facility] 2022-09-11 13:15:00 2022-09-11 13:15:00 Outpatient MACIEL TURCIOS [facility] [id number] [facility] 2022-08-04 09:30:00 2022-08-04 10:05:57 Outpatient FAUZIA MAYER [facility] [id number] [facility] 2022-08-04 09:00:00 2022-08-04 09:00:00 Outpatient FAUZIA MAYER [facility] [id number] [facility] 2022-07-07 11:30:00 2022-07-07 11:30:00 Outpatient BENEDICT SAM [facility] [id number] [facility] 2022-07-02 15:15:00 2022-07-02 15:15:00 Outpatient BENEDICT SAM [facility] [id number] [facility] 2022-04-30 14:45:00 2022-04-30 16:25:30 Office Visit Vu Hubbard [facility] VJ?[facility] BU[facility] 1.840.114 350.1.13.10 4.2.7.2.686 [id number] [facility] 2022-04-30 14:45:00 2022-04-30 16:25:30 Outpatient R VU HUBBARD [facility] [id number] [facility] 2022-04-30 14:45:00 2022-04-30 14:45:00 Outpatient R VU HUBBARD [facility] [id number] [facility] 2022-04-28 16:30:20 2022-04-28 23:59:00 Outpatient R ABHISHEKPayton NORMA [facility] [id number] [facility] 2022-04-28 15:40:00 2022-04-28 16:30:49 Outpatient R JONATHAN NORMA [facility] [id number] [facility] 2022-04-28 15:40:00 2022-04-28 16:30:49 Office Visit [facility] VJ?[facility] BUILD[facility] 1.840.114 350.1.13.10 4.2.7.2.686 [id number] [facility] 2022-01-28 00:00:00 2022-01-28 00:00:00 [facility] BU[facility] 1.840.114 350.1.13.10 4.2.7.2.686 [id number] [facility] 2021-11-08 00:00:00 2021-11-08 00:00:00 [facility] BU[facility] 1.840.114 350.1.13.10 4.2.7.2.686 [id number] [facility] 2021-11-06 00:00:00 2021-11-06 00:00:00 [facility] BUILDING 1.2.840.114 350.1.13.10 4.2.7.2.686 [id number] [facility] 2021-10-01 00:00:00 2021-10-01 00:00:00 Telephone [facility] BU[facility] 1.2.840.114 350.1.13.10 4.2.7.2.686 [id number] [facility] 2021-08-05 00:00:00 2021-08-05 00:00:00 Telephone [facility] BU[facility] 1.2.840.114 350.1.13.10 4.2.7.2.686 [id number] [facility] 2021-08-05 00:00:00 2021-08-05 00:00:00 Telephone [facility] BU[facility] 1.2.840.114 350.1.13.10 4.2.7.2.686 [id number] [facility] 2021-08-05 00:00:00 2021-08-05 00:00:00 Telephone [facility]oki [facility] BU[facility] 1.2.840.114 350.1.13.10 4.2.7.2.686 [id number] [facility] 2021-08-01 15:15:00 2021-08-01 23:59:00 Outpatient R KOKI FRIAS [facility] [id number] [facility] 2021-08-01 15:15:00 2021-08-01 23:59:00 [facility] BU[facility] 1.2.840.114 350.1.13.10 4.2.7.2.686 [id number] [facility] 2021-08-01 14:50:03 2021-08-01 15:05:03 Manager Branch Visit Lab, [place] [facility] [place] BU[facility] 1.2.840.114 350.1.13.10 4.2.7.2.686 [id number] [facility] 2021-08-01 13:30:00 2021-08-01 14:49:47 Outpatient R KOKI FRIAS [facility] [id number] [facility] 2021-08-01 13:30:00 2021-08-01 14:49:47 Outpatient [facility] [id number] [facility] 2021-08-01 13:11:41 2021-08-01 14:49:47 [facility] BU[facility] 1.2.840.114 350.1.13.10 4.2.7.2.686 [id number] [facility] 2021-08-01 00:00:00 2021-08-01 00:00:00 Orders Only Doctor Unassigned, [place] [facility] 1.2.840.114 350.1.13.10 4.2.7.2.686 [id number] [facility] Results Test Description Test Time Test Comments Results Resul t Comments Source CARDIOLOGY EVENT MONITOR 2025-03-03 20:00:23 Ordered by an unspecified provider. [facility] Cardiac Monitoring 2025-03-02 17:42:18 Ordered by an unspecified provider. [facility] [id number] 16:46:25 Ordered by an unspecified provider.[facility] [id number] 18:08:06Ordered by an unspecified provider.[facility]PPLY [id number] 18:07:49Ordered by an unspecified provider.[facility] JUSTIFICATION 2024-03-22 19:13:13Ordered by an unspecified provider.[facility] HospitalCb with [id number] 23:03:59* Test Item Value Reference Range Interpretation Comme nts WBC (test code = 6690-2) 8.00 4.30-11.10 RBC (test code = 789-8) 4.45 3.93-5.25 HGB (test code = 718-7) 13.3 g/dL 11.6-15.0 HCT (test code = 4544-3) 40.1 % 35.7-45.2 MCV (test code = 787-2) 90.1 fL 80.6-95.5 MCH (test code = 785-6) 29.9 pg 25.9-32.8 MCHC (test code = 786-4) 33.2 g/dL 31.6-35.1 RDW-SD (test code = 69412-8) 45.1 fL 39.0-49.9 RDW-CV (test code = 788-0) 13.6 % 12.0-15.5 PLT (test code = 777-3) 269 166-358 MPV (test code = 00214-6) 11.7 fL 9.5-12.9 NRBC/100 WBC (test code = 3417201591) 0.0 0.0-10.0 NRBC x10^3 (test code = 8956230684) See_Comment [Automated me ssage] The system which generated this result transmitted reference range: 10*3/?L. The reference range was not used to interpret this result as normal/abnormal. GRAN MAT (NEUT) % (test code = 770-8) 56.8 % IMM GRAN % (test code = 2509854421) 0.30 % LYMPH % (test code = 736-9) 33.3 % MONO % (test code = 5905-5) 7.6 % EOS % (test code = 713-8) 1.5 % BASO % (test code = 706-2) 0.5 % GRAN MAT x10^3(ANC) (test code = 1802986175) 4.55 10*3/uL 1.88-7.09 IMM GRAN x10^3 (test code = 7458256322) 0.00-0.06 LYMPH x10^3 (test code = 731-0) 2.66 10*3/uL 1.32-3.29 MONO x10^3 (test code = 742-7) 0.61 10*3/uL 0.33-0.92 EOS x10^3 (test code = 711-2) 0.12 10*3/uL 0.03-0.39 BASO x10^3 (test code = 704-7) 0.04 10*3/uL 0.01-0.07 [facility] with [id number] 23:03:59* Test Item Value Reference Range Interpretation Comme nts WBC (test code = 6690-2) 8.00 4.30-11.10 RBC (test code = 789-8) 4.45 3.93-5.25 HGB (test code = 718-7) 13.3 g/dL 11.6-15.0 HCT (test code = 4544-3) 40.1 % 35.7-45.2 MCV (test code = 787-2) 90.1 fL 80.6-95.5 MCH (test code = 785-6) 29.9 pg 25.9-32.8 MCHC (test code = 786-4) 33.2 g/dL 31.6-35.1 RDW-SD (test code = 54023-4) 45.1 fL 39.0-49.9 RDW-CV (test code = 788-0) 13.6 % 12.0-15.5 PLT (test code = 777-3) 269 166-358 MPV (test code = 93827-0) 11.7 fL 9.5-12.9 NRBC/100 WBC (test code = 8767199262) 0.0 0.0-10.0 NRBC x10^3 (test code = 3203797442) See_Comment [Automated me ssage] The system which generated this result transmitted reference range: 10*3/?L. The reference range was not used to interpret this result as normal/abnormal. GRAN MAT (NEUT) % (test code = 770-8) 56.8 % IMM GRAN % (test code = 8945584516) 0.30 % LYMPH % (test code = 736-9) 33.3 % MONO % (test code = 5905-5) 7.6 % EOS % (test code = 713-8) 1.5 % BASO % (test code = 706-2) 0.5 % GRAN MAT x10^3(ANC) (test code = 4466869272) 4.55 10*3/uL 1.88-7.09 IMM GRAN x10^3 (test code = 9410542068) 0.00-0.06 LYMPH x10^3 (test code = 731-0) 2.66 10*3/uL 1.32-3.29 MONO x10^3 (test code = 742-7) 0.61 10*3/uL 0.33-0.92 EOS x10^3 (test code = 711-2) 0.12 10*3/uL 0.03-0.39 BASO x10^3 (test code = 704-7) 0.04 10*3/uL 0.01-0.07 [facility] Notes Date/Time Note Provider Source 2025-04-26 08:42:06 Images from the original note were not included. Notes: Last Refilled: pramipexole 0.5 mg tablet Sig: Take 1 tablet by mouth in the morning and 1 tablet at noon and 1 tablet in the evening. 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, unspecified cerebrovascular disease type; Spastic hemiplegia affecting left dominant side, unspecified etiology Last ordered: 3 weeks ago (04/04/2025) by SUSAN Coulter Neurology: Parkinsonian Agents Oexagn3804/23/2025 03:46 PM Protocol Details Blood pressure within normal range and completed in the last 12 months Valid encounter within last 12 months Depression screening completed in the last 12 months To be filled at: [facility] [place] [place] [facility] [address] [facility] [address] Recent Visits Date Type Provider Dept 04/04/25 Office Visit Koki Frias FNP [facility] 01/06/25 Office Visit Holly Oden PA [facility] 08/09/24 Office Visit Koki Frias FNP [facility] 05/09/24 Office Visit Koki Frias FNP [facility] 02/25/24 Office Visit Norma Castillo MD [facility] Showing recent visits within past 540 days with a meds authorizing provider and meeting all other requirements Future Appointments No visits were found meeting these conditions. Showing future appointments within next 150 days with a meds authorizing provider and meeting all other requirements [facility] 2025-03-30 13:12:17 Images from the original note were not included. Called to inform patient of results and recommendations as detailed below. Patient verbalized understanding. Mateo Olivier MD P Cardiology Nurse Monitor showed no significant abnormality. This is reassuring. Alicia Rojas RN [facility] 2025-03-28 09:31:14 LVM rx sent. 9:31 AM 03/28/25 Melanie Raya LVN Melanie Raya LVN [facility] 2025-03-28 09:03:45 Refill sent [facility] 2025-03-27 11:23:41 Shannen Burks is a 89 year old female calling to see if the dr can prescribe her baclofen. Pt says shes having tremors in her legs and was given this medication at rehab and it work. Pt say she was prescribed another medication but it not working. Nona Bowman [facility] 2025-03-03 08:24:46 Fax received from [employer] with notification of early termination. Routing to as JORDANA. Kellee Turner MA [facility] 2025-02-28 16:05:27 Fax received from [employer] stating there has been no transmission for event monitor in 2 days. Event monitor was enrolled on 02/20/25. LVM to pt to call office back to discuss. Mayra Mccarthy [facility] Referral ID Status Reason Start Date Expiration Date V isits Requested Visits Authorized [id number] Authorized 02/27/2025 02/22/2026 1 1 * Hospital - Outpatient (Routine) - Authorized Specialty Diagnoses / Procedures Referred By Chencho t Referred To Contact Diagnoses Other muscle spasm Spastic hemiplegia affecting left nondominant side, unspecified etiology (CMS/HCC) (HCC) Procedures Nerve Block Maciel Turcios MD PhD [address] [place] [address] Phone: tel: fax: Referral ID Status Reason Start Date Expiration Date V isits Requested Visits Authorized [id number] Authorized 02/27/2025 02/22/2026 1 1 [facility]fc[facility]8443-24-26 00:41:10* * Auth/Cert (Routine) Specialty Diagnoses / Procedures Referred By Chencho monroy Referred To Contact Diagnoses 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 Other muscle spasm Procedures TN DSTRJ NEUROLYTIC AGENT OTHER PERIPHERAL NERVE CHG US GUIDANCE NEEDLE PLACEMENT IMG S&I [facility] (Ultrasound) [address] [place] [phone] Phone: tel: Referral ID Status Reason Start Date Expiration Date Visits Re quested Visits Authorized [id number] 1 1 [facility]stYvepwot2536-92-13 00:41:10* Maciel Turcios MD PhD - 02/27/2025 10:45 AM CDT SPASTICITY PROCEDURE NOTE Percutaneous Neurolysis (Nerve Block) Date of Procedure 02/27/25 Location ___*_ [facility] Procedure [facility] Performed by Maciel Turcios MD, PhD Assisted by Consent obtained from ____x__The patient ____x___The legal guardian/caregiver Procedures Performed: Diagnostic Neurolysis x Therapeutic Neurolysis xUltrasound guidance x Electrical stimulation Date History or Note was Originally Performed Date History or Note was reviewed xThere are no significant changes to the findings contained in the H&P since the time it was performed. There are significant changes and such changes are subsequently documented below or in the patient’s medical record. 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 Relevant review of body systems pertinent to the specific case, if applicable: no change Current Medications/Allergy, including vitamins and herbal supplements: x I have reviewed the list of medications provided by the patient/caregiver xI have reviewed the allergy information reported by the patient/caregiver Diagnosis (select all applicable) x Spasm of muscle x Spasticity Abnormal involuntary movement Disturbance of salivary secretion Spastic Hemiplegia/ hemiparesis - Dominant x Spastic Hemiplegia/ hemiparesis - Non Dominant Spastic Monoplegia/paresis, upper - Dominant Spastic Monoplegia/paresis, upper - Non Dominant Spastic Monoplegia/ Paresis, lower - Dominant Spastic Monoplegia/Paresis, lower - Non Dominant Tetraplegia - Complete Tetraplegia - Incomplete Paraplegia - Complete 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 The purpose is to perform phenol injections to block/damage nerves and their branches with the following treatment goals include: x Decrease spasms Decrease Clonus xPrevent contractures and other complications x Facilitate performance of activities of daily living xIncrease joint range of motion Increase active limb movement xImprove positioning x Improve transfers and mobility Decrease abnormal movement/dystonia x Improve gait Decrease spasm-related pain Prevent skin breakdown xImprove orthotic fit Improve hygiene and nursing care Other: xFurther, it is medically necessary to inject more than one nerve during this visit in order to achieve the goals mentioned above XBenefits discussed included, but were not limited decreased muscle tightness, increased joint range of motion, improved limb positioning, and facilitation of hygiene and nursing care. Risks discussed included, but were not limited to pain and discomfort during and after the injection, including pain that may last indefinitely, bleeding, bruising, excessive weakness, venous thrombosis and muscle fibrosis and atrophy. Details of Procedure X Patient Identity and Treatment sites confirmed/marked; Pre-procedure time-out performed XLocation of nerves to be treated was identified, and skin was cleaned with alcohol. x Ultrasound was used to confirm and visualize needle within target muscles x Electrical stimulation was used to localize motor points After site identification and confirmation, a hollow monopolar needle was introduced. Needle gauge used: 27x 25 21 18 Prior to injection, the needle plunger was aspirated to make sure that the needle was not in the blood vessel. There was no blood retrieved on aspiration. Agent Used and amount used Agent mL Lot Number Expiration Phenol4.5 see MAR see MAR Lidocaine 1% Etidocaine 0.25% NERVS INJECTED and AMOUNT OF NEUROLYTIC AGENT USED (in mL) Upper Limb Lower Limb RightLeft RightLeft Pectoral, medial Femoral Pectoral, lateral Femoral Branches to: Musculocutaneous Sciatic Median N. Branches to FCR/FDS/FPL Sciatic Branches to:medial hamstring lateral hamstring Ulnar nerve deep motor branch ulnar n. branch to- FDP/FCU Obturator N. branches Thoracodorsal N. branch to - Latissimus dorsi m. Tibial branches to: - Gasatrocs - Soleus - tibialis posterior - FDL 0.51.5 1.0 0.5 Radial nerve branches - Brachial radialis Peroneal N. branch to-Tibialis anterior m. 1.0 Total Nerves Total Nerves xThe patient tolerated the procedure the well. No complications occurred. Post-injection assessment (10-15 min post) Post- Procedure Recommendations:x Resume usual activities x See post-procedure orders Follow-Up Therapy Outpatient Therapyx Home Exercise Program Home Health x Continue current therapy program Follow-Up Evaluation 24 weeks As needed Tolerated procedure well, VS stable,great immediate responses, MAS assessment Left APF 2 --> 0 Left Toe flexors 2*-->0 (*:during standing) Reporting decreased sensation in left bottom of the foot, no pain, explained to patient that this side effect of sensory complications is expected to be short-lasting, fall precautions were emphasized, asked patient to call if pain develops. RTC in 6 months Maciel Turcios MD, PhDBrain Injury Medicine, Physical Medicine and Rehabilitation [facility] T [facility]stCxwueaz3554-10-86 00:41:10Upcoming Encounters Scheduled Orders Name Type Priority Associated Diagnoses Orde r Schedule Nerve Block Procedures Routine Other muscle spasm Spastic hemiplegia affecting left nondominant side, unspecified etiology (CMS/HCC) (HCC) Expected: 08/29/2025 (Approximate), Expires: 02/27/2026 US guided needle placement Imaging Routine Other muscle spasm Spastic hemiplegia affecting left nondominant side, unspecified etiology (CMS/HCC) (HCC) Expected: 08/29/2025, Expires: 02/27/2026 Health Maintenance Due Date Last Done Comments Bone Density Scan 1937 Annual Physical 1940 DTaP/Tdap/Td Vaccines (1 - Tdap) 1956 Zoster Vaccines (1 of 2) 1987 Respiratory Syncytial Virus (RSV) Adult Series (1 - 1-dose 75+ series) 2012 Pneumococcal Vaccine: 50+ Years (2 of 2 - PCV) 08/01/2022 08/01/2021, 06/23/2016 Lipid Panel 08/09/2029 08/09/2024 Influenza Vaccine Completed 08/29/2024, , 07/11/2022, Additional history exists HIB Vaccines Aged Out No longer eligi ble based on patient's age to complete this topic HPV Vaccines Aged Out No longer eligi ble based on patient's age to complete this topic Hepatitis A Vaccines Aged Out No long er eligible based on patient's age to complete this topic Hepatitis B Vaccines Aged Out No long er eligible based on patient's age to complete this topic IPV Vaccines Aged Out No longer eligi ble based on patient's age to complete this topic Meningococcal Vaccine Aged Out No arturo mikayla eligible based on patient's age to complete this topic Rotavirus Vaccines Aged Out No longer eligible based on patient's age to complete this topic [facility]stPqykhft9222-72-80 00:41:10 Diagnosis Other muscle spasm - Primary Muscle spasm Spasm of muscle Hemiplegia and hemiparesis f ollowing nontraumatic intracerebral hemorrhage affecting left dominant side (CMS/HCC) (HCC) Spastic hemiplegia affecting left nondominant side, unspecified etiology (CMS/HCC) (HCC) [facility]stUyekaat8179-50-41 11:39:36 Images from the original note were not included. 149608mo Fall Prevention Falls often take place due to slipping, tripping, or losing your balance. Millions of people fall every year and injure themselves. Among older adults in the [place] falls are the most common cause of traumatic brain injuries. Every 20 minutes, an older adult dies from a fall. Here are ways to reduce your risk of falling again: ? Think about your fall. Was there anything that caused your fall that can be fixed, removed, or replaced? ? Make your home safe by keeping walkways clear of objects you may trip over, such as animal toys and electrical cords. ? If you are sad or depressed talk to your health care provider. Symptoms of depression, such as feeling under the weather, or physically "slowed down," have been linked to an increased fall risk. ? Drink fluids throughout the day. Dehydration can lead to dizziness and increase your risk of falling. It's best to talk to your primary care providers about how much water you should drink. They know your medical history, your current prescriptions and your nyag-qrb-lpackfo medicines. As a general rule, the [employer] [place] [employer] (NCA) recommends taking one-third of your body weight and drinking that number of ounces in fluids. For example, if you weigh 150 pounds, you would drink at least 50 ounces, or about 6 cups, of fluid each day. Ask your provider if it's safe for you to use this formula. ? Use nonslip pads under rugs. Don't use area rugs or small throw rugs. ? Use nonslip mats in bathtubs and showers. ? Hang grab rails by the toilet and inside and outside the shower. ? Install handrails and lights on staircases. The handrails should be on both sides of the stairs. ? Use night lights. ? Don't walk in poorly lit areas. ? Don't stand on chairs or wobbly ladders. ? Use care when reaching overhead or looking up. This position can cause a loss of balance. ? Be sure your shoes fit well, are in good condition, and have nonslip bottoms. ? Wear shoes both inside and outside of your home. Don't go barefoot or wear slippers. ? Be cautious when going up and down stairs, curbs, and when walking on uneven sidewalks. ? If your balance is poor, consider using a cane or walker. Talk with your health care provider about having a balance assessment. ? If your fall was related to alcohol use, stop or limit alcohol intake. Ask your provider for help if you think you may overuse alcohol and can't stop. ? If your fall was related to use of sleeping medicines, talk with your provider about this. You may need to reduce your dosage at bedtime if you wake up during the night to go to the bathroom. ? To reduce the need for nighttime bathroom trips: o Don't drink fluids for several hours before going to bed. o Empty your bladder before going to bed. o Men can keep a urinal at the bedside. ? Stay as active as you can. Balance, flexibility, strength, and endurance all come from exercise. They all play a role in preventing falls. Ask your provider which types of activity are right for you. Try to do some type of exercise every day. ? Get your eyes checked once a year or more often if your vision changes. Be extra cautious while adjusting to new prescription lenses. ? If you have pets, know where they are before you stand up or walk so you don't trip over them. ? Go over all your medicines with a pharmacist or other provider. This is to see if any of them could make you more likely to fall. Have this type of medicine review at least once every year. ? If your provider advises a new medicine, ask if the side effects will affect your balance. ? Don't move quickly from one position to another. For instance, don't stand up fast from sitting. This can cause dizziness and may lead to a fall. ? Sit down when putting on pants, socks, and shoes. This will make you less likely to lose your balance and fall. ? Always let your provider know if you have fallen since your last visit. ? Contact your provider right away if you're having balance problems or falling more often. Last Reviewed Date: 2024 00:00:00 ? [id number] [employer]. All rights reserved. This information is not intended as a substitute for professional medical care. Always follow your healthcare professional's instructions. [facility]stRyuhnzh4160-21-45 09:57:01 Attempted to contact patient. LVM for patient with provider's recommendations. Alicia Rojas RNProvidence HospitalBapkab8750-81-79 21:14:23 Based on chart review, agree with getting the 30-day event monitor to rule out underlying arrhythmias which can explain her dizziness due to her advanced age. The other option will be to refer her to EP for consideration for ILR. IM-CARDIOVASCULAR DISEASE STAFFProvidence HospitalPolodm3071-41-91 15:18:46 Pt called clinic and is complaining of event monitor, states it is itchy and red. She has already reached out to [employer] and they told her there is nothing else they can send her. I informed her I will reach out to MD to verify need of event monitor and we will reach out to her once the MD decides. I discussed her echo results and she verbalized understanding and had no further questions at this time. Kellee Turner MAProvidence HospitalKdtfoh8803-42-62 11:34:35 3rd attempt to return call to patient. LVM. Will send letter with results and await call back from patient. Mellisa Cummings [place] 218015-06-03 16:14:39 2 nd Attempt to contact patient with results/recommendations. LVM for patient to return call to [phone]. Alicia Rojas [place] 218015-06-03 12:00:32 Images from the original note were not included. Attempted to contact patient to discuss results. LVM advising patient to call back. Mateo Olivier MD P Cardiology Nurse Heart ultrasound showed normal systolic (a.k.a pumping function) of the heart. Also cardiac valves showed good function with no significant stenosis (blockage) or regurgitations (leaks) This is reassuring. Continue same treatment plan as of now. [facility] HospitalCfhmmv5886-16-96 15:50:43 Pt is requesting a call to discuss most recent Echo results. Forwarding to MD for further assistance. Kellee Turner [facility] HospitalGfxhbp0734-67-70 15:30:00 [employer] 30-day event monitor applied to patient. Wear and care explained. Patient verbalized understanding. Patient given instruction on how to return monitor on 03/22/2025 to [employer]. Kellee Turner [facility] HospitalVjutqn3550-03-89 14:30:29 Attempt to contact the patient to assist with a follow up apt for med refills with [facility]. No answer,TR. Erica MenonProvidence HospitalTnucwo0569-88-21 12:01:38 Facilitate office visit [facility] HospitalMweqhl7911-38-63 11:31:29 Last Refilled: losartan 100 mg tablet 90 tablet 3 04/21/2024 -- No Sig: Take 1 tablet by mouth every morning. Sent to pharmacy as: losartan 100 mg tablet (COZAAR) Class: eRX Route: Oral Order: [id number] Date/Time Signed: 02/25/2024 14:04 E-Prescribing Status: Receipt confirmed by pharmacy (02/25/2024 2:04 PM CDT) Recent Visits Date Type Provider Dept 01/06/25 Office Visit Holly Oden PA [facility] 08/09/24 Office Visit Koki Frias FNP [facility] 05/09/24 Office Visit Koki Frias FNP [facility] 02/25/24 Office Visit Norma Castillo MD [facility] Showing recent visits within past 540 days with a meds authorizing provider and meeting all other requirements Future Appointments No visits were found meeting these conditions. Showing future appointments within next 150 days with a meds authorizing provider and meeting all other requirements Anjelica BradfordRichard [place] 15265-05-21 09:20:28 Shannen Burks is a 89 year old female Patient is calling to state that she is needing a refill for one of her prescriptions: losartan 100 mg tablet Patient states that she has a week's worth of medication left in her current supply. Please advise. [facility] [place], [place] - [address] [place] [address] AT [facility] [address] [facility] [address] [place] 942845-04-30 12:46:08 Contact was made with Shannen Burks on 01/18/2025 12:46 and informed of lab results per Provider notes. All was verbalized understanding. [facility]2025-04-29 15:18:25 Shannen Burks is a 89 year old female is returning a miss call from nurse regarding results. Please advise Gregory MartelProvidence HospitalSnsumm0597-89-40 15:07:24 Attempted to contact patient. No answer. Left message to call back. Anjelica BradfordJames [place] 547195-04-28 10:12:06 Shannen Burks is a 89 year old female and is calling asking for a call back to discuss her lab results. Pt is asking for a call back after 12 PM today. Carola AparicioC[facility] Clinic Luther[facility] HospitalEpwzpp0980-79-97 09:31:00 Attempted to contact patient, left message on voicemail to return call Delmi Abad MAProvidence HospitalMiuzbl4780-25-08 15:11:50 Patient is requesting a call from the clinic to discuss lab results Geovanny CourtneyProvidence HospitalHnawhv1811-79-54 15:06:03 Shannen Burks is a 89 year old female and is calling about her lab results. Would like a call back to discuss them please. Carola AparicioCleveland Clinic Lutheran HospitalNdzhhf3441-36-17 14:00:00 Images from the original note were not included. Venipuncture collection performed by clean technique on the right anticubitus. Total of 1 attempts were made. Slight pressure and a bandage/dressing were applied to the site(s). The patient experienced no complications. The following specimens were processed according to instructions and sent to [facility] laboratories per lab order on 01/06/2025 : LT BLUE SST 2 RED LAV 2 PPT DK GREEN (LiHep) DK GREEN (SodH) [place] DK BLUE (K2) DK BLUE (S) ACD Blood Culture NIPT/NTD Patient has been identified by and name and was provided with cup, antiseptic towelette, and clean catch instructions. 2 urine specimen(s) sent. Unpreserved 1 Urine Culture 1 Aptima tube Other urine [facility] HospitalXpckfh9477-36-85 00:39:45* Auth/Cert (Routine) Specialty Diagnoses / Procedures Referred By Chencho t Referred To Contact Diagnoses Spastic hemiplegia affecting unspecified side Other muscle spasm Procedures TN DSTRJ NEUROLYTIC AGENT OTHER PERIPHERAL NERVE CHG US GUIDANCE NEEDLE PLACEMENT IMG S&I [facility] [address] [place] [phone] Phone: tel: fax: Referral ID Status Reason Start Date Expiration Date Visits Re quested Visits Authorized [id number] 1 [facility]stYzsanja7391-86-52 00:39:45* Over the past 2 weeks, how often have you been bothered by any of the following problems? Question Answer Date of Assessment Author Little interest or pleasure in doing things Not at all 08/29/2024 10:45 AM Marcos Harding LVN Feeling down, depressed, or hopeless Not at all 08/29/2024 10:45 AM Bibiana Harding LVN Patient Health Questionnaire-2 Score 0 08/29/2024 10:45 AM Warren Harding LVN [facility]stLkjfdxf3400-21-07 00:39:45Upcoming Encounters Health Maintenance Due Date Last Done Comments Bone Density Scan 1935 Annual Physical 1940 DTaP/Tdap/Td Vaccines (1 - Tdap) 1956 Zoster Vaccines (1 of 2) 1987 Respiratory Syncytial Virus (RSV) or >=60 (1 - 1-dose 75+ series) 2012 Pneumococcal Vaccine: 65+ Years (2 of 2 - PCV) 08/01/2022 08/01/2021, 06/23/2016 Influenza Vaccine (#1) 2024 3, 07/11/2022, 06/23/2022, Additional history exists Lipid Panel 08/09/2029 08/09/2024 HIB Vaccines Aged Out No longer eligi ble based on patient's age to complete this topic HPV Vaccines Aged Out No longer eligi ble based on patient's age to complete this topic Hepatitis A Vaccines Aged Out No long er eligible based on patient's age to complete this topic Hepatitis B Vaccines Aged Out No long er eligible based on patient's age to complete this topic IPV Vaccines Aged Out No longer eligi ble based on patient's age to complete this topic Meningococcal Vaccine Aged Out No arturo mikayla eligible based on patient's age to complete this topic Rotavirus Vaccines Aged Out No longer eligible based on patient's age to complete this topic [facility]stVooehnm8422-94-28 00:39:45 Diagnosis Other muscle spasm Spastic hemiplegia affecting left nondominant side, unspecified etiology (CMS/HCC) (HCC) [facility]stXplrlol2103-29-48 00:39:45 [facility]stCyoqppc5446-41-49 11:43:13* Clinic-Administered Medication (Routine) - Authorized Specialty Diagnoses / Procedures Referred By Chencho monroy Referred To Contact Diagnoses Muscle spasm 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) Procedures Nerve Block Maciel Turcios MD PhD [address] [place] [phone] Phone: tel: fax: Referral ID Status Reason Start Date Expiration Date V isits Requested Visits Authorized [id number] Authorized 08/29/2024 02/25/2025 1 1 [facility]stArqvzwg9314-37-30 11:43:13* * Auth/Cert (Routine) Specialty Diagnoses / Procedures Referred By Chencho t Referred To Contact Diagnoses Spastic hemiplegia affecting unspecified side Other muscle spasm Procedures TN DSTRJ NEUROLYTIC AGENT OTHER PERIPHERAL NERVE CHG US GUIDANCE NEEDLE PLACEMENT IMG S&I TIRR [facility] [address] [place] [phone] Phone: tel: fax: Referral ID Status Reason Start Date Expiration Date Visits Re quested Visits Authorized [id number] 1 1 [facility]stJrkmvgh5406-42-17 11:43:13* Over the past 2 weeks, how often have you been bothered by any of the following problems? Question Answer Date of Assessment Author Little interest or pleasure in doing things Not at all 08/29/2024 10:45 AM [employer] Marcos Hinton LVN Feeling down, depressed, or hopeless Not at all 08/29/2024 10:45 AM [employer] Bibiana Hinton LVN Patient Health Questionnaire-2 Score 0 08/29/2024 10:45 AM [employer] Warren Hinton LVN [facility]stJnkkwqx0836-51-15 11:43:13* Maciel Turcios MD PhD - 08/29/2024 10:15 AM [employer]ENT [employer] SPASTICITY PROCEDURE NOTE Percutaneous Neurolysis (Nerve Block) Date of Procedure 08/29/24 Location ___*_ [facility] Procedure room Performed by Maciel Turcios MD, PhD Assisted by Consent obtained from ____x__The patient ____x___The legal guardian/caregiver Procedures Performed: Diagnostic Neurolysis x Therapeutic Neurolysis xUltrasound guidance x Electrical stimulation Date History or Note was Originally Performed Date History or Note was reviewed xThere are no significant changes to the findings contained in the H&P since the time it was performed. There are significant changes and such changes are subsequently documented below or in the patient’s medical record. 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 Relevant review of body systems pertinent to the specific case, if applicable: no change Current Medications/Allergy, including vitamins and herbal supplements: x I have reviewed the list of medications provided by the patient/caregiver xI have reviewed the allergy information reported by the patient/caregiver Diagnosis (select all applicable) x Spasm of muscle x Spasticity Abnormal involuntary movement Disturbance of salivary secretion Spastic Hemiplegia/ hemiparesis - Dominant x Spastic Hemiplegia/ hemiparesis - Non Dominant Spastic Monoplegia/paresis, upper - Dominant Spastic Monoplegia/paresis, upper - Non Dominant Spastic Monoplegia/ Paresis, lower - Dominant Spastic Monoplegia/Paresis, lower - Non Dominant Tetraplegia - Complete Tetraplegia - Incomplete Paraplegia - Complete 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 The purpose is to perform phenol injections to block/damage nerves and their branches with the following treatment goals include: x Decrease spasms Decrease Clonus xPrevent contractures and other complications x Facilitate performance of activities of daily living xIncrease joint range of motion Increase active limb movement xImprove positioning x Improve transfers and mobility Decrease abnormal movement/dystonia x Improve gait Decrease spasm-related pain Prevent skin breakdown xImprove orthotic fit Improve hygiene and nursing care Other: xFurther, it is medically necessary to inject more than one nerve during this visit in order to achieve the goals mentioned above XBenefits discussed included, but were not limited decreased muscle tightness, increased joint range of motion, improved limb positioning, and facilitation of hygiene and nursing care. Risks discussed included, but were not limited to pain and discomfort during and after the injection, including pain that may last indefinitely, bleeding, bruising, excessive weakness, venous thrombosis and muscle fibrosis and atrophy. Details of Procedure X Patient Identity and Treatment sites confirmed/marked; Pre-procedure time-out performed XLocation of nerves to be treated was identified, and skin was cleaned with alcohol. x Ultrasound was used to confirm and visualize needle within target muscles x Electrical stimulation was used to localize motor points After site identification and confirmation, a hollow monopolar needle was introduced. Needle gauge used: 27x 25 21 18 Prior to injection, the needle plunger was aspirated to make sure that the needle was not in the blood vessel. There was no blood retrieved on aspiration. Agent Used and amount used Agent mL Lot Number Expiration Phenol5 see MAR see MAR Lidocaine 1% Etidocaine 0.25% NERVS INJECTED and AMOUNT OF NEUROLYTIC AGENT USED (in mL) Upper Limb Lower Limb RightLeft RightLeft Pectoral, medial Femoral Pectoral, lateral Femoral Branches to: Musculocutaneous Sciatic Median N. Branches to FCR/FDS/FPL Sciatic Branches to:medial hamstring lateral hamstring Ulnar nerve deep motor branch ulnar n. branch to- FDP/FCU Obturator N. branches 1.5 Thoracodorsal N. branch to- Latissimus dorsi m. Tibial branches to: - Gasatrocs - Soleus - tibialis posterior - FDL 1.01.0 1.0 0.5 Radial nerve branches - Brachial radialis Peroneal N. branch to-Tibialis anterior m. Total Nerves Total Nerves xThe patient tolerated the procedure the well. No complications occurred. Post-injection assessment (10-15 min post) Post- Procedure Recommendations:x Resume usual activities x See post-procedure orders Follow-Up Therapy Outpatient Therapyx Home Exercise Program Home Health x Continue current therapy program Follow-Up Evaluation 24 weeks As needed Tolerated procedure well, VS stable, ok to return to roomgreat immediate responses, MAS assessment Left APF 2 --> 1 RTC in 6 months Maciel Turcios MD, PhDBrain Injury Medicine, Physical Medicine and Rehabilitation [facility]2024-12-09 11:43:13Scheduled Orders Health Maintenance Due Date Last Done Comments Bone Density Scan 1935 Annual Physical 1940 DTaP/Tdap/Td Vaccines (1 - Tdap) 1956 Zoster Vaccines (1 of 2) 1987 Respiratory Syncytial Virus (RSV) or >=60 (1 - 1-dose 75+ series) 2012 Pneumococcal Vaccine: 65+ Years (2 of 2 - PCV) 08/01/2022 08/01/2021, 06/23/2016 Influenza Vaccine (#1) 2024 3, 07/11/2022, 06/23/2022, Additional history exists Lipid Panel 08/09/2029 08/09/2024 HIB Vaccines Aged Out No longer eligi ble based on patient's age to complete this topic HPV Vaccines Aged Out No longer eligi ble based on patient's age to complete this topic Hepatitis A Vaccines Aged Out No long er eligible based on patient's age to complete this topic Hepatitis B Vaccines Aged Out No long er eligible based on patient's age to complete this topic IPV Vaccines Aged Out No longer eligi ble based on patient's age to complete this topic Meningococcal Vaccine Aged Out No arturo mikayla eligible based on patient's age to complete this topic Rotavirus Vaccines Aged Out No longer eligible based on patient's age to complete this topic [facility]stGbetydy6305-28-97 11:43:13 Diagnosis 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 [id number] Muscle Spasm A muscle spasm (also called a cramp) is an involuntary muscle contraction. The muscle or muscle group tightens quickly and strongly. A hard lump may form in the muscle. Muscle spasms can be very painful. Here's how to treat and prevent muscle spasms. What causes muscles to spasm? Often, the cause of a muscle spasm is not known. Muscle spasm is caused by irritation of muscle fibers. Some things can make a muscle spasm more likely. These include: ? Injury ? Heavy exercise ? Overtired muscles ? A muscle held in 1 position for a long time ? Dehydration ? Low levels of certain minerals in the body ? Certain medicines, such as water pills (diuretics) ? Certain health conditions, such as kidney failure or diabetes ? Stopping a muscle spasm Muscle spasms often come and go quickly. When a muscle goes into spasm, very gently stretch and massage the muscle. This may help calm the muscle fibers. Then rest the muscle. Preventing muscle spasms There is little or no evidence that staying hydrated, taking certain vitamins or minerals, or stretching works to prevent cramps. But these measures may still help and have other benefits. Talk to your healthcare provider about steps to take to prevent muscle spasms. Try to: ? Drink enough fluids to prevent dehydration, especially when you exercise. ? Take vitamin or mineral supplements. ? Get regular exercise. ? Stretch regularly, especially before exercise. ? Limit caffeine and smoking. ? Take a prescription muscle relaxant if prescribed by your provider. When to call your healthcare provider Call your healthcare provider if you have any of the following: ? Severe cramping ? Cramping that lasts a long time, does not go away with stretching, or keeps coming back ? Pain, tingling, or weakness in the arms or legs ? Pain that wakes you up at night Last Reviewed Date: 2023 00:00:00 ? [id number] [employer]. All rights reserved. This information is not intended as a substitute for professional medical care. Always follow your healthcare professional's instructions. [facility]2024-12-09 10:45:25 Images from the original note were not included. [id number] Fall Prevention Falls often take place due to slipping, tripping, or losing your balance. Millions of people fall every year and injure themselves. Among older adults in the [place] falls are the most common cause of traumatic brain injuries. Every 20 minutes, an older adult dies from a fall. Here are ways to reduce your risk of falling again: ? Think about your fall. Was there anything that caused your fall that can be fixed, removed, or replaced? ? Make your home safe by keeping walkways clear of objects you may trip over, such as electrical cords. ? Use nonslip pads under rugs. Don't use area rugs or small throw rugs. ? Use nonslip mats in bathtubs and showers. ? Hang grab rails by the toilet and inside and outside the shower. ? Install handrails and lights on staircases. The handrails should be on both sides of the stairs. ? Use night lights. ? Don't walk in poorly lit areas. ? Don't stand on chairs or wobbly ladders. ? Use care when reaching overhead or looking up. This position can cause a loss of balance. ? Be sure your shoes fit well, are in good condition, and have nonslip bottoms. ? Wear shoes both inside and outside of your home. Don't go barefoot or wear slippers. ? Be cautious when going up and down stairs, curbs, and when walking on uneven sidewalks. ? If your balance is poor, consider using a cane or walker. Talk with your healthcare provider about having a balance assessment. ? If your fall was related to alcohol use, stop or limit alcohol intake. Ask your provider for help if you think you may overuse alcohol and can't stop. ? If your fall was related to use of sleeping medicines, talk with your provider about this. You may need to reduce your dosage at bedtime if you wake up during the night to go to the bathroom. ? To reduce the need for nighttime bathroom trips: o Don't drink fluids for several hours before going to bed o Empty your bladder before going to bed o Men can keep a urinal at the bedside ? Stay as active as you can. Balance, flexibility, strength, and endurance all come from exercise. They all play a role in preventing falls. Ask your provider which types of activity are right for you. Try to do some type of exercise every day. ? Get your eyes checked once a year or more often if your vision changes ? If you have pets, know where they are before you stand up or walk so you don't trip over them. ? Go over all your medicines with a pharmacist or other provider. This is to see if any of them could make you more likely to fall. Have this type of medicine review at least once every year. ? If your provider advises a new medicine, ask if the side effects will affect your balance. ? Don't move quickly from one position to another. For instance, don't stand up fast from sitting. This can cause dizziness and may lead to a fall. ? Sit down when putting on pants, socks, and shoes. This will make you less likely to lose your balance and fall. ? Always let your provider know if you have fallen since your last visit. ? Contact your provider right away if you're having balance problems or falling more often. Last Reviewed Date: 2021 00:00:00 ? [id number] [employer]. All rights reserved. This information is not intended as a substitute for professional medical care. Always follow your healthcare professional's instructions. [facility]2024-11-19 10:15:00 Images from the original note were not included. Venipuncture collection performed by clean technique on the right anticubitus. Total of 1 attempts were made. Slight pressure and a bandage/dressing were applied to the site(s). The patient experienced no complications. The following specimens were processed according to instructions and sent to [facility] laboratories per lab order on 08/09/2024 : LT BLUE SST 1 RED LAV 1 PPT DK GREEN (LiHep) DK GREEN (SodH) HUTCHINS DK BLUE (K2) DK BLUE (S) ACD Blood Culture NIPT/NTD [place] [id number] 16:48:15 Signed order at PT as well. [facility] PN-NEUROLOGY [facility]2024-11-05 09:00:45 Addended by: JOSEFINA SANDS on: 07/26/2024 09:00 AM Modules accepted: Orders [place] 20456-11-05 08:53:35 [facility] were needing PT referral to have the need for AFO brace in it. New order written, per Dr. Brown, and sent. [place] 20456-11-01 16:23:20 [facility] to follow up on what was needed. Office was closed. Will attempt again Ramírez. Josefina Sands formerly [facility]2024-10-31 15:47:00 I thought we had already done this. PN-NEUROLOGY [facility]2024-10-29 11:18:36 Please send in referral for AFO. [facility] 09:21:06 Shannen Burks is a 89 year old female [place] is calling with [facility] and is asking was going to get a referral for AFO'S Please advise Marimar SmithProvidence HospitalKcfzuv5983-44-79 15:07:06 Access Center: [facility] Open Encounter Maintenance This is being sent to you as part of [facility] Chart Maintenance. The encounter has been open longer than 72 hours and has no documentation attached. Encounter closed. Jayne Fleming RNProvidence HospitalXhonzb6328-18-43 11:46:08 Shannen Burks is a 89 year old female Connie Estes Physical Therapist w/[facility] calling to get in touch with DR. Rockwell Liu [facility] HospitalHarvtz8204-99-91 08:32:14 Referral placed per provider , patient notified. [facility] HospitalIstfhc9394-76-15 10:05:00 Attempted to contact patient. No answer. Left message to call back. Sakina Ruiz LVN 05/30/2024 10:05 AM Sakina Ruiz formerly [facility]2024-09-08 18:08:38 You may add referral T [facility] HospitalOksqic8727-22-24 16:26:56 Please review and advise. EL 05/09/24 NOV 08/09/24 T [facility] HospitalMwnuge7674-79-58 15:47:19 Shannen Burks is a 88 year old female calling stating she is needing a referral for an orthopedist for a custom made brace for leg due to stroke. States her physical therapist has recommended this. Please call Ms. Burks at [phone] to discuss details. Wilder CarrilloProvidence HospitalXjxcsc7661-74-24 15:02:19 I need an actual prescription in the sytem that I can print and submit to [place] for the motorized scooter. I submitted the order but it will not be completed without this. T [facility] HospitalJzwmzi5542-82-47 12:08:44 Face to face added to not, per SUSAN Coulter. Misa Faulkner RNProvidence HospitalDnflwf4538-45-18 09:13:20 Order placed through [employer] but they are requiring prescription please advise. [place] 20611-08-22 17:46:48 Face to face needed, but since I just saw her, I went back and addended that note to add this- please order through [place]. [place] 20611-08-22 13:20:35 Please review and advise. EL 05/09/24 NOV 08/09/24 F2F will need to be completed or please amend last OV Sarina Walton [place] 75130-08-22 12:12:57 Shannen Burks is a 88 year old female Pt is requesting orders for a motorized scooter, Thanks Submit to Norman Iliana OquendoJames Ville 547194-08-16 14:03:52 Forms placed in Providers inbox for review and completion. Sarina Walton [place] 75130-08-14 10:31:02 Received forms from [employer], requesting information of when pt was last seen, placed in providers box to review. Mini OatesRobert [place] [id number] 08:56:39 Order Information: Order ID: [id number]: Shower Chair (With Back) [$] Quantity: 1, Start Date: 03/02/2024, Length of Need: 99 months Payment: Insurance Deliver to: [address], [place], [address] Ordering User: Sakina Ruiz ([facility] [place]) DME order placed for shower chair via [place]. Sakina Ruiz formerly [facility]2024-06-11 14:13:30 Contacted patient. Patient notified of results per provider. Verbalized understanding. Anjelica BradfordProvidence HospitalEyygmw0907-63-54 12:51:29 I placed the orders. [facility]2024-06-07 17:44:[address] Castillo, if not addressed in that visit , a face to face is needed for DME. [facility]2024-06-07 16:16:[address] order for safety shower and chair if applicable. Misa Faulkner RNProvidence HospitalFddyad8800-38-20 15:54:14 PHOTOCOPYING EQUIPMENT MECHANIC received consult/order for DME - safety shower and chair. SW reviewed patient chart for needs/financial barriers to obtaining DME. Insured (Medicare and Medicaid - [place]). Routing to Clinic spool winder for processing. Isabel Grove LCSW [facility] Ambulatory Social Work [phone] Isabel GILLETTEKathleen [place] 43347-06-06 14:15:00 Images from the original note were not included. Venipuncture collection performed by clean technique on the right anticubitus. Total of 1 attempts were made. Slight pressure and a bandage/dressing were applied to the site(s). The patient experienced no complications. The following specimens were processed according to instructions and sent to [facility] laboratories per lab order on 02/25/2024 : LT BLUE SST 1 RED LAV 2 PPT DK GREEN (LiHep) DK GREEN (SodH) HUTCHINS DK BLUE (K2) DK BLUE (S) ACD Blood Culture NIPT/NTD Patient has been identified by and name and was provided with cup, antiseptic towelette, and clean catch instructions. 2 urine specimen(s) sent. Unpreserved 1 Urine Culture 1 Aptima tube Other urine [place] [id number] 13:00:00 Addended by: NORMA CASTILLO on: 03/01/2024 12:51 PM Modules accepted: Orders [place] [id number] 12:01:12 Chief Complaint: Follow up phenol injections. 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 here for follow up and we discussed the following: Spasticity and left spastic hemiplegia: s/p phenol injection on 09/11/2022 to left pectoral m. #left hip adductors and ankle plantar flexors, with good relief. noticed significant improvement in tone, now had some return, mainly in left elbow, hip adductors, and ankle PF. - last phenol injection to left elbow, left hip adductors and APF in Jun 2023, patient is very pleased with the results, amb w/ a cane in house without AFO. #abnormal gait: currently amb w/ a quad cane, no apparent falls, but daughter noticed unstable gait and limited distance. #left side pain: still has decreased sensation on left side, from face to toe, sometime pain, taking gabapentin at bedtime, with good control #diet: regular #bowel: regular, no constipation #bladder: incontinent, wearing brief #sleep: occasional insomnia #mood: no depression #social issue: patient [place] to go back to [place] and lives alone, and daughter lives hours away. Patient is currently in a SNF near where daughter lives. daughter is remodelling her house. They plan to take the patient from SNF after their remodelling. Review of Systems: CONSTITUTIONAL: Denies fever, weight loss EYES: Denies visual change from baseline EARS, NOSE, MOUTH, THROAT: No cough, cold, sore throat, difficulty swallowing CARDIOVASCULAR: Denies orthopnea, shortness of breath RESPIRATORY: Denies difficulty of breathing GI: Denies constipation, diarrhea : Denies change in bladder function INTEGUMENTARY: Denies rash, open sores NEURO: Denies new weakness, sensory changes PSYCH: Denies depression, anxiety, hallucinations Physical Exam: Vitals & Measurements HT: 160.02 cm HT Collection: Stated WT: 59.091 kg WT Collection: Estimated BP: 139/66 HR(Peripheral): 69 bpm RR: 16 BRMIN T(Te): 98.1 DegF BP Site: Right arm BP Collection: Electronic BP Collection Position: Sitting BMI: 23.08 m2 BSA: 1.6207 m2 SpO2: 98 % General: awake, no acute distress, appears stated age HEENT: NCAT, sclera anicteric, no conjunctival injection, MMM CV: extremities well-perfused, no peripheral edema Resp: normal respiratory effort, no accessory muscle use GI: abdomen non-distended, soft MSK: no long bone deformities, no joint effusion Skin: no rashes and normal turgor in exposed skin areas Psych: appropriate, cooperative : deferred Neuro: awake, alert, speech normal, follows commands easily Motor: LEFT shoulder aBduction and FF to at least 90deg against gravity. full ROM at elbow with gravity eliminated. at least 4/5 in welding tester strength. HF 2/5, KE 3/5, ADF 1/5. RIGHT UE and LE grossly 5/5. Tone: MAS L shoulder aBductor 1, ext 1, IR 1+, EF 1+, EE 1, WF 0, MCP 0, FF 0. HF 0, HaDductor 1, KF 0, KE 0, APF 21+ within available range to neutral in KF and KE. couple beats of clonus in KF, self-extinguishes. REFLEX: patellar tendon reflex 3 on L, 1+ on right Gait - without shoes/AFO. L leg minimally adducted but not to the midline during swing. knee mild hyperextension during stance with some deg of APF, however, there is full foot contact with the floor during standing. able to flex the knee during initial swing and clear the floor. - dynamic elbow flexion during standing, - dynamic toe curling (FDL, 1st, 2nd, 3rd toes) during standing - patient has some foot inversion during swing phase Assessment/Plan: - overall medically stable, continue current management and secondary stroke prevention - very pleased with last phenol injeciton in Jun 2023, still has full foot contact during stance, - plan to repeat phenol to elbow, toe flexors, small amount to APF as well. 1. Other muscle spasm (M62.838) Ordered: [facility] Rehab Neurolytic Procedure Scheduling - Neurolytic Injection, 12/03/23 11:04:00 CDT, 1 Neurolytic Injection, Weeks - 2, 02/22/24, ONCE, Phenol, Spasticity Clinic - [facility], Future Order, Other muscle spasm | Spastic hemiparesis of left nondominant side | Abnormality of gait following cerebrovascular accident (CVA) | History of hemorrhagic cerebr... NO READ US for Injection US, 12/17/23, C4 order, Weeks - 2, Consent not obtained, Routine, None, Transport by Wheelchair, N/A, None, Patient has IV No, None, No Isolation/Standard Precautions, Future Order Indicator, [facility] 2. Spastic hemiparesis of left nondominant side (G81.14) Ordered: [facility] Rehab Neurolytic Procedure Scheduling - Neurolytic Injection, 12/03/23 11:04:00 CDT, 1 Neurolytic Injection, Weeks - 2, 02/22/24, ONCE, Phenol, Spasticity Clinic - [facility], Future Order, Other muscle spasm | Spastic hemiparesis of left nondominant side | Abnormality of gait following cerebrovascular accident (CVA) | History of hemorrhagic cerebr... NO READ US for Injection US, 12/17/23, C4 order, Weeks - 2, Consent not obtained, Routine, None, Transport by Wheelchair, N/A, None, Patient has IV No, None, No Isolation/Standard Precautions, Future Order Indicator, [facility] 3. 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 NO READ US for Injection US, 12/17/23, C4 order, Weeks - 2, Consent not obtained, Routine, None, Transport by Wheelchair, N/A, None, Patient has IV No, None, No Isolation/Standard Precautions, Future Order Indicator, [facility] 4. 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 NO READ US for Injection US, 12/17/23, C4 order, Weeks - 2, Consent not obtained, Routine, None, Transport by Wheelchair, N/A, None, Patient has IV No, None, No Isolation/Standard Precautions, Future Order Indicator, [facility] Problem List/Past Medical History: Ongoing Abnormality of gait following cerebrovascular accident (CVA) Adult hypothyroidism History of hemorrhagic cerebrovascular accident (CVA) with residual deficit Hypertension Other muscle spasm Pain of left side of body Spastic hemiparesis of left nondominant side Procedure/Surgical History: MRI Medications: acetaminophen 325 mg oral tablet., 650 mg= 2 tab, PO, Q4H albuterol 90 mcg/inh inhalation aerosol, 2 puff, INHALATION, Q6H, PRN amLODIPine 5 mg oral tablet, 5 mg= 1 tab, PO, Daily Artificial Tears, 1 drop, BOTH EYES, Daily baclofen 5 mg oral tablet, 5 mg= 1 tab, PO, Q8H, PRN cloNIDine 0.1 mg oral tablet, 0.1 mg= 1 tab, PO, Q6H, PRN Sbp>180 or Dbp>100 diclofenac topical, 2 gm= 1 appl, TOP, QID gabapentin 300 mg oral capsule, 300 mg= 1 cap, PO, Bedtime, daily levothyroxine 50 mcg (0.05 mg) oral tablet, 50 microgram= 1 tab, PO, Q630AM losartan 100 mg oral tablet, 100 mg= 1 tab, PO, Daily melatonin 3 mg oral tablet, 3 mg= 1 tab, PO, Bedtime, PRN Miacalcin Nasal 200 intl units/inh nasal spray, 1 spray, NASAL, Daily MiraLax oral powder for reconstitution, 17 gm, PO, TID montelukast 10 mg oral tablet, 10 mg= 1 tab, PO, Bedtime senna 8.6 mg oral tablet, 17.2 mg= 2 tab, PO, QNoon tizanidine 4 mg oral tablet, 2 mg= 0.5 tab, PO, Bedtime Tums 500 mg oral tablet, chewable, 500 mg= 1 tab, CHEW, TID, PRN Vitamin D3 5000 intl units oral tablet, 125 microgram= 1 tab, PO, Daily zinc gluconate 50 mg oral tablet, 100 mg= 2 tab, PO, Bedtime Zofran 4 mg oral tablet, 4 mg= 1 tab, PO, Q8H, PRN nausea Allergies: amoxicillin (Amoxicillin Sodium) morphine Social History: Electronic Cigarette/Vaping Electronic Cigarette Use: Never. Tobacco Use: Never smoker. Tobacco smoke exposure: None. Did the Patient Smoke Cigarettes Anytime During the Last 365 Days? No. Cessation Counseling Provided? No. Immunizations: Vaccine Date Status influenza virus vaccine, inactivated 07/11/2022 Given Health Maintenance: Pending (in the next year) OverDue *Depression Screening - Comprehensive Adult Wellness due 06/26/23 and every 1 Years Due IVD Antiplatelet Therapy - IVD/CAD due 12/03/23 Unknown Frequency Influenza Vaccination - [facility] Adult [facility]ness due 12/03/23 Unknown Frequency Pneumococcal Vaccination Older Adults - [facility] due 12/03/23 One-time only Shingles Vaccination - [facility] Adult [facility] due 12/03/23 Unknown Frequency Statin Therapy All Groups - IVD/CAD due 12/03/23 Unknown Frequency Tdap Vaccination - [facility] Adult [facility] due 12/03/23 Unknown Frequency Due In Future Fall Risk Screening - Comprehensive Adult Wellness not due until 07/05/24 and every 1 Years Physical Medicine [facility]The [facility]
[2025-04-28 14:23] LABS: Absolute Lymphocytes (CBC) 2.8 K/uL (0.7-4.9); Hematocrit 40.8 % (36.0-45.0); Hemoglobin 13.5 g/dL (12.0-15.0); MCH 29.2 pg (27.0-35.0); MCHC 33.0 g/dL (32.0-36.0); MCV 88.5 fL (80-100); MPV 8.9 fL (7.6-11.3); Nucleated RBC Absolute Count 0.0 (0-0); Nucleated Red Blood Cells % 0.1 % (0-0); RBC Red Blood Cell Count 4.61 M/uL (3.86-4.86); White Blood Count 7.70 thou/uL (4.3-10.9)
[2025-04-28] MEDS ORDERED: ONDANSETRON 4 MG/2 ML VIAL ONE (14:28)
[2025-04-28] MEDS ORDERED: NA CHLORIDE 0.9% 500 ML ONE (14:28)
[2025-04-28 14:42] LABS: ALT/SGPT 17 U/L (13-56); Albumin 3.2 g/dL (3.4-5.0); Albumin/Globulin Ratio 0.9 (1.1-1.8); Alkaline Phosphatase 75 U/L (45-117); Anion Gap 10.3 mEq/L (5.0-15.0); BUN Blood Urea Nitrogen 25 mg/dL (7-18); Globulin 3.4 g/dL (2.3-3.5); Glucose Level 144 mg/dL (74-106); Magnesium 2.1 mg/dL (1.6-2.4); Potassium 3.3 mEq/L (3.5-5.1)
[2025-04-28 14:44] LABS: AST/SGOT < 10 U/L (15-37); Bilirubin Indirect, Calculated 0.1 mg/dL (0.2-0.8)
--- NOTE | 2025-04-28 15:48 | EDPHYS ---
Physician Documentation [facility] Name: Shannen Jessica Age: 89 yrs Sex: Female : 1935 Arrival Date: 04/28/2025 Time: 13:48 Bed 2 Private MD: ED Physician Gamal Rey HPI: 04/28 13:59 This 89 yrs old Female presents to ER via EMS with complaints of nausea, vomiting. kb 13:59 Patient is an 89-year-old female who presents for nausea, vomiting and dizziness that kb started this morning. States she took her pramipexole for the first time along with a Benadryl for allergy symptoms and believes she was having a reaction to the medication. States she is feeling much better now, dizziness resolved. A friend of hers came over and checked her blood pressure, told her it was low and that she needed to come to the hospital for evaluation.. Historical: - Allergies: 13:59 PENICILLINS; nh2 13:59 Morphine; nh2 13:59 Ampicillin; nh2 - Home Meds: 14:21 pramipexole 0.5 mg oral tablet 1 tab 3 times per day for restless leg syndrome nh2 [Active]; levothyroxine 50 mcg tablet 1 tabs daily for hypothyroidism [Active]; amlodipine 2.5 mg tablet 1 tab daily for hypertension [Active]; montelukast 10 mg oral tablet 1 tab every evening for seasonal allergic rhinitis [Active]; - PMHx: 13:59 Hypothyroidism; Hypertensive disorder; nh2 13:59 Cerebrovascular accident; nh2 - PSHx: 13:59 Appendectomy; Tonsillectomy; Cholecystectomy; nh2 - Immunization history:: Adult Immunizations up to date. - Infectious Disease History:: Denies. - Social history:: Smoking status: Patient denies any tobacco usage or history of. ROS: 13:59 Constitutional: As per HPI kb Exam: 13:59 Constitutional: This is a well developed, well nourished patient who is awake, alert, kb and in no acute distress. Head/Face: Normocephalic, atraumatic. ENT: Moist Mucous membranes Cardiovascular: Regular rate Respiratory: Respirations even and unlabored. No increased work of breathing. Talking in full sentences Abdomen/GI: Soft, non-tender. No distention Skin: Warm, dry with normal turgor. Normal color. MS/ Extremity: Pulses equal, no cyanosis. Neurovascular intact. Full, normal range of motion. Neuro: Awake and alert, GCS 15, oriented to person, place, time, and situation. 14:19 ECG was reviewed by the Attending Physician. Vital Signs: 13:56 BP 123 / 72; Pulse 83; Resp 18; Temp 97.2(TE); Pulse Ox 97% on R/A; Weight 56.7 kg; nh2 Height 5 ft. 2 in. ; Pain 0/10; 15:46 BP 120 / 71; Pulse 91; Resp 16; Pulse Ox 100% on R/A; iw 13:56 Body Mass Index 22.86 (56.70 kg, 157.48 cm) nh2 13:56 Pain Scale: Adult nh2 MDM: 13:57 Medical Screening Exam initiated kb 14:00 Differential diagnosis: Nonspecific abd pain, viral gastroenteritis, Medication kb reaction, dehydration, abnormal electrolytes, acute renal failure. Data reviewed: vital signs, nurses notes. Historians other than the Patient: EMS: [facility]. Friend: Friend. ED course: Patient is a 89-year-old female who presents for nausea, vomiting and dizziness after taking pramipexole and Benadryl together this morning. Patient reports her symptoms are resolved at this time. Will check CBC, BMP, LFTs, magnesium, EKG. Will give IV fluids for hydration and Zofran for nausea. Patient would like to go home after evaluation and treatment.. 15:04 Independent interpretation of the following test(s) in the Emergency Department Cardiac monitor: rate is 70 beats/min, Rhythm is normal sinus rhythm, Interpretation: normal rate, normal rhythm. 15:48 I considered the following discharge prescriptions or medication management in the emergency department Prescribed antiemetics to use as needed at home.. Test considered but Not performed: CT: CT abdomen considered but patient has no abdominal pain or tenderness.. Counseling: I had a detailed discussion with the patient and/or guardian regarding the historical points, exam findings, and any diagnostic results supporting the discharge/admit diagnosis, lab results, the need for outpatient follow up, a family practitioner, to return to the emergency department if symptoms worsen or persist or if there are any questions or concerns that arise at home. ED course: Patient states she feels great after treatment and is ready to go home.. 04/28 13:58 Order name: Basic Metabolic Panel; Complete Time: 14:49 kb 04/28 13:58 Order name: CBC with Diff; Complete Time: 14:49 kb 04/28 13:58 Order name: Hepatic Function; Complete Time: 14:49 kb 04/28 13:58 Order name: Magnesium; Complete Time: 14:49 kb 04/28 13:58 Order name: Cardiac monitoring; Complete Time: 14:21 kb 04/28 13:58 Order name: EKG - Nurse/Tech; Complete Time: 14:21 kb 04/28 13:58 Order name: IV Saline Lock; Complete Time: 14:27 kb 04/28 13:58 Order name: Labs collected and sent; Complete Time: 14:27 kb 04/28 13:58 Order name: NPO; Complete Time: 14:27 kb 04/28 13:58 Order name: O2 Per Protocol; Complete Time: 14:27 kb 04/28 13:58 Order name: O2 Sat Monitoring; Complete Time: 14:27 kb EC:19 Rate is 76 beats/min. Rhythm is regular. QRS [place] is Normal. [place] interval is prolonged kb at 212 msec. QRS interval is normal at 94 msec. QT interval is normal at 420 msec. Administered Medications: 14:34 Drug: Ondansetron IVP 4 mg IVP once; over 2 minutes Route: IVP; Site: right antecubital;nh2 15:08 Follow up: Response: No adverse reaction; Nausea is decreased; Vomiting decreased nh2 15:09 Follow up: Response: No adverse reaction; Nausea is decreased; Vomiting decreased nh2 14:35 Drug: NS 0.9% IV 500 ml 500 ml IV at 1 bolus once; to be given as a bolus over 30 nh2 minutes Volume: 500 ml; Route: IV; Rate: 1 bolus; Site: right antecubital; 15:08 Follow up: Response: No adverse reaction nh2 16:00 Follow up: IV Status: Completed infusion iw 15:58 Drug: Potassium Chloride PO 20 mEq PO once Route: PO; iw 16:05 Follow up: Response: No adverse reaction iw Disposition: 16:30 Co-signature as Attending Physician, Corrina Medrano RN I agree with the assessment and jr plan of care. Disposition Summary: 04/28/25 15:47 Discharge Ordered Notes: Location: Home kb Condition: Stable kb Diagnosis - Nausea with vomiting, unspecified kb Followup: kb - With: Emergency Department - When: As needed - Reason: Worsening of condition Followup: kb - With: Private Physician - When: 2 - 3 days - Reason: Recheck today's complaints, Continuance of care, Re-evaluation by your physician Discharge Instructions: - Discharge Summary Sheet kb - Nausea and Vomiting, Adult, Chai-[employer] kb Forms: - Medication Reconciliation Form kb - Antibiotic Education kb - Prescription Opioid Use kb - Patient Portal Instructions kb - Leadership Thank You Letter kb Prescriptions: - ondansetron 4 mg Oral Tablet,disintegrating - take 1 tablet ORAL route every 6 hours as needed for nausea and vomiting; 12 kb tablet; Refills: 0, Product Selection Permitted Signatures: Dispatcher [employer] EDMS Allyson Tim, CLAIMS DIRECTOR-C CLAIMS DIRECTOR-[place] Corrina Medrano, RN RN iw Gamal Rey MD MD [id number] Santos Gregorio Jr, RN RN nh2 Corrections: (The following items were deleted from the chart) 13:58 13:58 BASIC METABOLIC PANEL+C.LAB.BRZ ordered. EDMS EDMS 13:58 13:58 CBC+H.LAB.BRZ ordered. EDMS EDMS 13:58 13:58 HEPATIC FUNCTION+C.LAB.BRZ ordered. EDMS EDMS 13:58 13:58 MAGNESIUM+C.LAB.BRZ ordered. EDMS EDMS 13:58 13:58 UA Rfx Jerome Cult if indicated+U.LAB.BRZ ordered. EDMS EDMS 14:14 13:59 PMHx: Parkinson's disease; nh2 nh2 14:21 13:59 Home Meds: losartan Oral [Inactive]; nh2 nh2 15:05 14:00 Differential diagnosis: Nonspecific abd pain, viral gastroenteritis, Medication kb reaction kb
--- NOTE | 2025-04-28 15:48 | ER ---
Nurse's Notes [facility] Name: Shannen Jessica Age: 89 yrs Sex: Female : 1935 Arrival Date: 04/28/2025 Time: 13:48 Bed 2 Private MD: Diagnosis: Nausea with vomiting, unspecified Presentation: 04/28 13:56 Chief complaint: Patient states: having an episode of dizziness and N/V this morning. nh2 Ebola Screen: No symptoms or risks identified at this time. Initial Sepsis Screen: Does the patient meet any 2 criteria? No. Patient's initial sepsis screen is negative. Does the patient have a suspected source of infection? No. Patient's initial sepsis screen is negative. Risk Assessment: Do you want to hurt yourself or someone else? Patient reports no desire to harm self or others. 13:56 Acuity: ANYA 3 nh2 13:56 Method Of Arrival: EMS: [facility] iw 14:17 Coronavirus screen: At this time, the client does not indicate any symptoms associated nh2 with coronavirus-19. Onset of symptoms was April 28, 2025 at 12:30. Triage Assessment: 14:17 General: Appears. nh2 Historical: - Allergies: 13:59 PENICILLINS; nh2 13:59 Morphine; nh2 13:59 Ampicillin; nh2 - Home Meds: 14:21 pramipexole 0.5 mg oral tablet 1 tab 3 times per day for restless leg syndrome nh2 [Active]; levothyroxine 50 mcg tablet 1 tabs daily for hypothyroidism [Active]; amlodipine 2.5 mg tablet 1 tab daily for hypertension [Active]; montelukast 10 mg oral tablet 1 tab every evening for seasonal allergic rhinitis [Active]; - PMHx: 13:59 Hypothyroidism; Hypertensive disorder; nh2 13:59 Cerebrovascular accident; nh2 - PSHx: 13:59 Appendectomy; Tonsillectomy; Cholecystectomy; nh2 - Immunization history:: Adult Immunizations up to date. - Infectious Disease History:: Denies. - Social history:: Smoking status: Patient denies any tobacco usage or history of. Screenin:14 [facility] ED Fall Risk Assessment (Adult) History of falling in the last 3 months, nh2 including since admission No falls in past 3 months (0 pts) Confusion or Disorientation No (0 pts) Intoxicated or Sedated No (0 pts) Impaired Gait No (0 pts) Mobility Assist Device Used Yes (1 pt) Altered Elimination No (0 pt) Score/Fall Risk Level 0 - 2 = Low Risk. [facility] ED Fall Risk Assessment (Adult) Score/Fall Risk Level 0 - 2 = Low Risk Oriented to surroundings, Maintained a safe environment, Educated pt \T\ family on fall prevention, incl call for assistance when getting out of bed. Abuse screen: Denies threats or abuse. Nutritional screening: No deficits noted. Tuberculosis screening: No symptoms or risk factors identified. Assessment: 14:10 General: Appears in no apparent distress. Behavior is calm, cooperative, appropriate nh2 for age, Denies fever, feeling ill, fatigue, chills. Pain: Denies pain. Neuro: Weakness in left arm(s). Neuro: Level of Consciousness is awake, alert, obeys commands, Oriented to person, place, time, situation, Reports dizziness, since 1230. Cardiovascular: Capillary refill < 3 seconds in bilateral fingers toes Clubbing of nail beds is absent JVD is absent Patient's skin is warm and dry. Respiratory: Airway is patent Trachea midline Respiratory effort is even, unlabored, Respiratory pattern is regular, symmetrical. GI: Abdomen is flat, non-distended, Reports nausea, vomiting, since 1230. : Denies burning with urination, vaginal bleeding. Derm: Skin is intact, is healthy with good turgor. Musculoskeletal: Range of motion: limited in left shoulder, left elbow and left wrist. Vital Signs: 13:56 BP 123 / 72; Pulse 83; Resp 18; Temp 97.2(TE); Pulse Ox 97% on R/A; Weight 56.7 kg; nh2 Height 5 ft. 2 in. ; Pain 0/10; 15:46 BP 120 / 71; Pulse 91; Resp 16; Pulse Ox 100% on R/A; iw 13:56 Body Mass Index 22.86 (56.70 kg, 157.48 cm) nh2 13:56 Pain Scale: Adult nh2 ED Course: 13:54 Patient arrived in ED. em1 13:57 Allyson Tim FNP-C [facility]. kb 13:57 Gamal Rey MD is Attending Physician. kb 13:59 Triage completed. nh2 14:12 Arm band placed on. iw 14:14 Bed in low position. Call light in reach. Side rails up X 1. Provided Education on: nh2 using call light for assistance. 14:14 Initial lab(s) drawn, by me, sent to lab. Inserted saline lock: 20 gauge in right nh2 antecubital area, using aseptic technique. Blood collected. Flushed with 10 mL NS. 14:17 Corrina Medrano, RN is Primary Nurse. iw 14:27 Basic Metabolic Panel Sent. nh2 14:27 CBC with Diff Sent. nh2 14:27 Hepatic Function Sent. nh2 14:27 Magnesium Sent. nh2 16:07 No provider procedures requiring assistance completed. IV discontinued, intact, iw bleeding controlled, No redness/swelling at site. Pressure dressing applied. Administered Medications: 14:34 Drug: Ondansetron IVP 4 mg IVP once; over 2 minutes Route: IVP; Site: right antecubital;nh2 15:08 Follow up: Response: No adverse reaction; Nausea is decreased; Vomiting decreased nh2 15:09 Follow up: Response: No adverse reaction; Nausea is decreased; Vomiting decreased nh2 14:35 Drug: NS 0.9% IV 500 ml 500 ml IV at 1 bolus once; to be given as a bolus over 30 nh2 minutes Volume: 500 ml; Route: IV; Rate: 1 bolus; Site: right antecubital; 15:08 Follow up: Response: No adverse reaction nh2 16:00 Follow up: IV Status: Completed infusion iw 15:58 Drug: Potassium Chloride PO 20 mEq PO once Route: PO; iw 16:05 Follow up: Response: No adverse reaction iw Medication: 14:14 VIS not applicable for this client. nh2 Outcome: 15:47 Discharge ordered by MD. mcclelland 16:07 Discharged to home via wheelchair, with family, iw 16:07 Condition: good 16:07 Discharge instructions given to patient, family, Instructed on discharge instructions, follow up and referral plans. medication usage, Demonstrated understanding of instructions, follow-up care, medications, Prescriptions given X 1, 16:08 Patient left the ED. iw Signatures: Allyson Tim, MOSAICIST-C MOSAICIST-CkCorrina Resendiz, RN RN iw John Watson em1 Santos Gregorio Jr, RN RN nh2 Corrections: (The following items were deleted from the chart) 14:14 13:59 PMHx: Parkinson's disease; nh2 nh2 14:21 13:59 Home Meds: losartan Oral [Inactive]; nh2 nh2 15:02 13:56 Method Of Arrival: EMS [facility] iw : 14:10 Neuro: Level of Consciousness is awake, alert, obeys commands, Oriented to iw person, place, time, situation, [facility] 14:10 GI: Abdomen is flat, non-distended, Reports nausea, [place] [id number] 14:10 Neuro: Level of Consciousness is awake, alert, obeys commands, Oriented to nh2 person, place, time, situation, iw
[2025-04-28] MEDS ORDERED: POTASSIUM CL SA 10 MEQ TAB PO ONE (15:50)
[2025-04-28 16:31] VITALS: BP 103/76; TEMP 98; O2SAT 100
== END 2025-04-28 16:08 | disposition home or self-care (01) ==
LOC: ER 13:48
DX: R11.2 Nausea with vomiting, unspecified (principal); I10 Essential (primary) hypertension; E03.9 Hypothyroidism, unspecified; Z86.73 Personal history of transient ischemic attack (TIA), and cerebral infarction without residual deficits
CPT/HCPCS: 96361; 93005; 85025; 80048; 36415; 83735; 80076; 96374; 99284; J2405; J7040